=== PATIENT | female | born 2005 | race Caucasian/White ===

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

== ENCOUNTER → 2023-02-13 11:34 | Outpatient (BNVA) | payer OTHER, SELFPAY ==
[2022-09-05 08:49] VITALS: BP 129/79; BMI 36.6
== END ==
PROVIDERS: PCP Family Medicine; Visit Provider Nurse Practitioner
DX: Z79.899 Other long term (current) drug therapy (principal)
CPT/HCPCS: 80061; 83036

== ENCOUNTER → 2023-03-10 13:12 | Outpatient (BNVA) | payer MEDICAID, SELFPAY ==
[2022-09-05 08:49] VITALS: BP 129/79; BMI 36.6
== END ==
PROVIDERS: PCP Family Medicine; Visit Provider Registered Nurse Neonatal Intensive Care
DX: Z20.822 Contact with and (suspected) exposure to COVID-19 (principal); R05.9 Cough, unspecified; J06.9 Acute upper respiratory infection, unspecified
CPT/HCPCS: 87400; 87426

== ENCOUNTER 2023-10-19 16:34 | Emergency (ER) | payer MEDICAID, SELFPAY ==
[2022-09-05 08:49] VITALS: BP 129/79; BMI 36.6
--- NOTE | 2023-10-19 16:38 | XRR_ITS ---
PROCEDURE INFORMATION: Exam: XR Left Hand Exam date and time: 10/19/2023 5:00 PM Age: 18 years old Clinical indication: Hand; Right; Patient HX: PT states she popped wrist, pain near 5th digit and posterior near metacarpals. ; Additional info: Injury TECHNIQUE: Imaging protocol: Radiologic exam of the left hand. Views: 3 or more views. COMPARISON: No relevant prior studies available. FINDINGS: Bones/joints: Subtle, questionable hairline fracture at the base of the 5th metacarpal. The rest of the osseous structures are intact. Soft tissues: Normal. XR/XR hand LT min 3V* [id number] IMPRESSION: Subtle, questionable hairline fracture of the base of the metacarpal.
[2023-10-19 16:39] VITALS: BP 138/80; PULSE 101; RESP 17; TEMP 37.2; O2SAT 95; BMI 52.9
--- NOTE | 2023-10-19 16:52 | W.ED.EXTPRO ---
HPI - Extremity Problem General: Chief complaint: Extremity Injury, Upper Stated complaint: Left Hand injury Time Seen by Provider: 10/19/23 16:48 Source: patient Mode of arrival: ambulatory Limitations: no limitations History of Present Illness: Patient is a 18-year-old female presenting to the emergency department complaining of left hand pain onset today. Patient states she was popping her wrist, as she usually does, and had a worse than usual pain to the ulnar aspect, stating it feels like a pressure in her hand. No previous fractures or injuries to the wrist. No trauma. No distal neurovascular changes. Has not taken anything for pain. MD Complaint: extremity pain Onset (ago): hour(s) Pain Consistency: constant Location: left and upper extremity Radiation: none Relieving factors: nothing Exacerbating factors: nothing Associated symptoms: Deny chest pain, fever(s) or rash Related Data Home Medications Medication Instructions Recorded Confirmed levothyroxine 88 mcg tablet 88 mcg PO .ON SATURDAY@12/15/21 08/07/23 cholecalciferol (vitamin D3) 50 50 mcg PO QAM 06/05/22 08/07/23 mcg (2,000 unit) capsule (Vitamin D3) levothyroxine 100 mcg tablet See Rx Instructions .Route .COMPLEX 08/07/23 08/07/23 Previous Rx's Medication Instructions Recorded methylphenidate HCl 54 mg 54 mg PO QAM #30 tabs 05/18/22 tablet,extended release 24 hr (Concerta) bupropion HCl 150 mg 24 hr tablet, 150 mg PO QAM #30 tabs 08/07/23 extended release (Wellbutrin XL) citalopram 40 mg tablet (Celexa) 40 mg PO QAM #30 tabs 08/07/23 paliperidone 6 mg tablet,extended 12 mg (2 x 6 mg) PO QAM #60 tabs 08/07/23 release 24 hr (Invega) trazodone 50 mg tablet See Rx Instructions .Route 08/07/23 .COMPLEX #30 tabs hydroxyzine pamoate 50 mg capsule 50 mg PO BID PRN anxiety #60 caps 10/14/23 Allergies Allergy/AdvReac Type Severity Reaction Status Date / Time No Known Allergies Allergy Verified 10/19/23 16:42 Review of Systems General: Reports: 10 or more systems reviewed and unremarkable except in HPI and below Const: Denies: fever(s) or chills Card: Denies: chest pain Resp: Denies: dyspnea or productive cough GI: Denies: abdominal pain, nausea, vomiting or diarrhea : Denies: flank pain Musc: Reports: extremity pain (Left hand); Denies: neck pain, back pain, extremity swelling, joint pain, joint swelling, joint redness, joint warmth, limited range of motion or muscle weakness Skin/Breast: Denies: rash Neuro: Denies: headache(s), numbness in extremities or weakness in extremities PFSH ED PFSH: Medical History On combination antipsychotic drug therapy Borderline personality disorder Cannabis abuse Major depressive disorder, recurrent, moderate Tobacco use disorder Depression Psychiatric care Family History Family/Other Cancer lung Dementia Grandmother COPD (chronic obstructive pulmonary disease) Social History Smoking and tobacco/nicotine status: current every day tobacco/nicotine user e-cigarettes E-Cigarette Details: vaporizer device E-cig/vape details: 1 cartridge per week with nicotine Quit status (tobacco/nicotine): not considering quitting Second hand smoke exposure: Yes (everyone) Alcohol intake: never Substance/Drug Use: current Substance/Drug use frequency: few times a week Other substance/drug use details: when client has the money to purchase Adopted: No Caregiver/support person: No Lives independently: No Household members: family and other Details: Mother, sister, brother, and toddler or younger nieces and nephews Housing: House Marital status: Single Highest education level completed: 11th Grade Education level details: in 12th grade service: No Current occupational status: student Current occupational exposures/hazards: No Pets and animals: Yes Pets & animals: dog(s) Leisure activites: other Leisure activities details: walk, listen to music Sexually active: No Do you think of yourself as: Straight/Heterosexual Current gender identity: Female Rut/Church: None Agree to transfusion: Yes Female Reproductive History: Para: 0 Spontaneous abortions: No Physical Exam Const: COMMON NORMALS: no acute distress, patient oriented x3, no limitations, healthy appearing, alert and well nourished HENMT: COMMON NORMALS: normocephalic and atraumatic HEAD & SCALP: normocephalic and atraumatic Neck/C-Spine: COMMON NORMALS: full ROM, supple and no meningeal signs Resp: COMMON NORMALS: normal respiratory effort, No use of accessory muscles and clear to auscultation bilaterally AUSCULTATION: clear to auscultation bilaterally Cardio: COMMON NORMALS: regular rate and regular rhythm RATE: regular rate RHYTHM: regular rhythm Extremity: COMMON NORMALS: normal to inspection, full ROM, capillary refill normal, no joint enlargement and no clubbing, cyanosis or edema NARRATIVE EXTREMITY EXAM: No obvious bruising of the left hand. No signs of trauma or deformity. Distal neurovascular status intact. Good surveillance sensor officer strength. Mild reproducible tenderness to palpation of the ulnar aspect of the left hand. Full range of motion, some pain with flexion and extension at the wrist. Neuro: COMMON NORMALS: patient oriented x3, moves all extremities, no focal motor deficits and no sensory deficits noted SENSORIUM/ORIENTATION: Yes alert MENINGEAL SIGNS: Yes no meningeal signs Skin: COMMON NORMALS: no rashes or lesions noted GENERAL SKIN EXAM: no rashes or lesions noted Course Vital Signs: Vital signs: Vital Signs Temperature 98.9 F 10/19/23 18:22 Pulse Rate 98 10/19/23 18:22 Respiratory Rate 16 10/19/23 18:22 Blood Pressure 134/82 10/19/23 18:22 Pulse Oximetry 97 10/19/23 18:22 Oxygen Delivery Me thod Room Air 10/19/23 16:39 MDM - Extremity (Nontraumatic) Medical Decision Making Patient seen after atraumatic injury to the left wrist/hand, states she had pain while trying to pop it. Vitals normal on arrival. Physical examination overall unremarkable, there was very minimal reproducible tenderness to palpation of the ulnar aspect of the left hand/wrist. X-ray showed very small, and questionable if hairline fracture at the base of the metacarpal. She had requested to leave prior to x-ray radiology interpretation, and she will be contacted to follow-up with her primary doctor for reevaluation in the next few days. She is informed to treat with RICE therapy and Tylenol/ibuprofen and is placed in compression bandage prior to leaving. Lab Data Radiology Impressions Hand X-Ray 10/19/23 16:38 IMPRESSION: Subtle, questionable hairline fracture of the base of the metacarpal. XR interpretation done by ED provider, pending radiology final review ED provider radiology interpretation(s): X-ray left hand. No obvious fractures, questionable fifth metacarpal finding, pending radiology's interpretation. Discharge Plan Discharge Patient Disposition: Home Clinical Impression: Left wrist sprain Qualifiers: Encounter type: initial encounter Qualified Code(s): S63.502A - Unspecified sprain of left wrist, initial encounter Condition: Stable Prescriptions: No Action trazodone 50 mg tablet See Rx Instructions .ROUTE .COMPLEX Qty: 30 2RF Dose Instruction: TAKE 1 TABLET BY MOUTH AT BEDTIME Rx Instructions: TAKE 1 TABLET BY MOUTH AT BEDTIME paliperidone [Invega] 6 mg tablet extended release 24hr 12 mg PO QAM Qty: 60 2RF bupropion HCl [Wellbutrin XL] 150 mg tablet extended release 24 hr 150 mg PO QAM Qty: 30 2RF citalopram [Celexa] 40 mg tablet 40 mg PO QAM Qty: 30 2RF hydroxyzine pamoate 50 mg capsule 50 mg PO BID PRN (Reason: anxiety) Qty: 60 1RF levothyroxine 88 mcg Tablet 88 mcg PO .ON SATURDAY@09 levothyroxine 100 mcg tablet See Rx Instructions .ROUTE .COMPLEX Rx Instructions: 125mcg po daily @ 0900 except on saturday take 88mcg methylphenidate HCl [Concerta] 54 mg tablet extended release 24hr 54 mg PO QAM Qty: 30 0RF Vitamin D3 50 mcg (2,000 unit) Capsule 50 mcg PO QAM Discharge Orders: Discharge ED (Routine); Ordered 10/19/23 Ordered By: Hari Shi Referrals: Felipe Garcia MD [Primary Care Provider] - Discharge Diet: Usual diet Discharge Activity: Increase activity as tolerated Patient Instructions: Wrist Sprain (ED) Activity Restrictions/Additional Instructions: Rest, ice, compression, elevation. Follow-up with primary care provider. Tylenol and ibuprofen for any pain. Return with any new or worsening. 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
[2023-10-19 18:22] VITALS: BP 134/82; PULSE 98; RESP 16; TEMP 37.2; O2SAT 97
== END 2023-10-19 18:23 | disposition home or self-care (01) ==
PROVIDERS: Emergency Provider Physician Assistant; PCP Family Medicine
DX: S63.502A Unspecified sprain of left wrist, initial encounter (principal); X58.XXXA Exposure to other specified factors, initial encounter
CPT/HCPCS: 73130; 99283

== ENCOUNTER 2023-10-26 11:06 | Emergency (ER) | payer MEDICAID, SELFPAY ==
[2022-09-05 08:49] VITALS: BP 129/79; BMI 36.6
[2023-10-26 11:13] VITALS: BP 144/78; PULSE 94; RESP 16; TEMP 36.7; O2SAT 98
--- NOTE | 2023-10-26 13:07 | ED_ITS ---
HPI - Wound/Laceration General: Chief Complaint: Wound/Laceration Stated Complaint: Right foot possible spider bite Time Seen by Provider: 10/26/23 12:57 Source: patient Mode of arrival: ambulatory Limitations: no limitations History of Present Illness: Patient presents emergency department today for evaluation treatment of concerns for potential spider bite located to her right, medial foot. She reports the spot has been there for couple days and while she has been doing twice a day wound cleaning and bandage changing, feels the area is getting a little bit worse, more red and sore, and having draining. She is not sure if it was a spider bite but indicates she did not feel any type of scratch or sting prior to onset of the redness and skin irritation. She denies any known injury. She ind icated that at first, the area was somewhat itchy but has now turned more tender and sore. It is tender and sore when she performs wound care. No fever. Still ambulating. Related Data Home Medications Medication Instructions Recorded Confirmed levothyroxine 88 mcg tablet 88 mcg PO .ON SATURDAY@12/15/21 08/07/23 cholecalciferol (vitamin D3) 50 50 mcg PO QAM 06/05/22 08/07/23 mcg (2,000 unit) capsule (Vitamin D3) levothyroxine 100 mcg tablet See Rx Instructions .Route .COMPLEX 08/07/23 08/07/23 Previous Rx's Medication Instructions Recorded methylphenidate HCl 54 mg 54 mg PO QAM #30 tabs 05/18/22 tablet,extended release 24 hr (Concerta) bupropion HCl 150 mg 24 hr tablet, 150 mg PO QAM #30 tabs 08/07/23 extended release (Wellbutrin XL) citalopram 40 mg tablet (Celexa) 40 mg PO QAM #30 tabs 08/07/23 paliperidone 6 mg tablet,extended 12 mg (2 x 6 mg) PO QAM #60 tabs 08/07/23 release 24 hr (Invega) trazodone 50 mg tablet See Rx Instructions .Route 08/07/23 .COMPLEX #30 tabs hydroxyzine pamoate 50 mg capsule 50 mg PO BID PRN anxiety #60 caps 10/14/23 cephalexin 500 mg capsule 500 mg PO Q6H 7 days #28 caps 10/26/23 Allergies Allergy/AdvReac Type Severity Reaction Status Date / Time No Known Allergies Allergy Verified 10/26/23 11:17 Review of Systems General: Reports: 10 or more systems reviewed and unremarkable except in HPI and below PFSH ED PFSH: Medical History On combination antipsychotic drug therapy Borderline personality disorder Cannabis abuse Major depressive disorder, recurrent, moderate Tobacco use disorder Depression Psychiatric care Family History Family/Other Cancer lung Dementia Grandmother COPD (chronic obstructive pulmonary disease) Social History Smoking and tobacco/nicotine status: current every day tobacco/nicotine user e- cigarettes E-Cigarette Details: vaporizer device E-cig/vape details: 1 cartridge per week with nicotine Quit status (tobacco/nicotine): not considering quitting Second hand smoke exposure: Yes (everyone) Alcohol intake: never Substance/Drug Use: current Substance/Drug use frequency: few times a week Other substance/drug use details: when client has the money to purchase Adopted: No Caregiver/support person: No Lives independently: No Household members: family and other Details: Mother, sister, brother, and toddler or younger nieces and nephews Housing: House Marital status: Single Highest education level completed: 11th Grade Education level details: in 12th grade service: No Current occupational status: student Current occupational exposures/hazards: No Pets and animals: Yes Pets & animals: dog(s) Leisure activites: other Leisure activities details: walk, listen to music Sexually active: No Do you think of yourself as: Straight/Heterosexual Current gender identity: Female Rut/Jainism: None Agree to transfusion: Yes Female Reproductive History: Para: 0 Spontaneous abortions: No Physical Exam Const: COMMON NORMALS: no acute distress, patient oriented x3 and alert HENMT: COMMON NORMALS: normocephalic, atraumatic and hearing grossly normal bilaterally HEAD & SCALP: normocephalic and atraumatic Eye: COMMON NORMALS: Equal, round and reactive pupils present, EOMs intact bilaterally and conjunctivae normal CONJUNCTIVA: Yes conjunctivae normal PUPIL: Yes Equal, round and reactive pupils present Neck/C-Spine: COMMON NORMALS: full ROM and no JVD Lymph: LYMPHATIC: no lymphadenopathy noted Resp: COMMON NORMALS: normal respiratory effort, No retractions and No use of accessory muscles Cardio: COMMON NORMALS: no JVD and regular rate RATE: regular rate Extremity: NARRATIVE EXTREMITY EXAM: Full range of motion to the right ankle and toes of the right foot. She is ambulatory and weightbearing. Neuro: COMMON NORMALS: patient oriented x3 SENSORIUM/ORIENTATION: Yes alert Psych: COMMON NORMALS: mental status grossly normal, Normal thought process present, cooperative and normal affect THOUGHT PROCESS: Normal thought process present Skin: COMMON NORMALS: turgor normal GENERAL SKIN EXAM: turgor normal and erythema (Mild) OTHER: Patient has a somewhat circular area of mild ulceration noted to the right medial foot just above the arch. There is no active draining. The ulceration itself is red with very minimal surrounding erythema. No active draining but, does appear that there is some granulation tissue beginning to develop. No signs of an active eschar. No bleeding. Skin is still soft. Course Vital Signs: Vital signs: Vital Signs Temperature 98.1 F 10/26/23 11:13 Pulse Rate 94 10/26/23 11:13 Respiratory Rate 16 10/26/23 11:13 Blood Pressure 144/78 10/26/23 11:13 Pulse Oximetry 98 10/26/23 11:13 Oxygen Delivery Me thod Room Air 10/26/23 11:13 MDM - Wound/Laceration Medical Decision Making Patient presents today with several days of wound noted to the right foot. While there is unknown cause, she is suspicious for spider bite. Patient has been doing proper wound care for the last few days but, I do agree that the area is still erythematous but without development of eschar at this time. She denies any history of staph or MRSA in the past. We will provide her mupirocin cream for any presence of MRSA staph and rebandaged her foot here in the emergency department. Went over typical progression of spider bites-especially brown recluse and discussed envenomation with skin necrosis. At this time, I do not see any skin necrosis but do agree the area is erythematous with concerns for developing infection at this time. Patient is given a short course of some antibiotics with instructions to continue her twice a day wound care and bandaging with close monitoring. She can have follow-up with her primary care doctor next week for wound check if needed. She verbalizes understanding and agreement to treatment plan. Differential Diagnosis Unlikely laceration, abscess, abrasion or avulsion of skin No radiology studies performed this visit Discharge Plan Discharge Patient Disposition: Home Clinical Impression: Open wound of skin Condition: Stable Prescriptions: New cephalexin 500 mg capsule 500 mg PO Q6H 7 Days Qty: 28 0RF No Action trazodone 50 mg tablet See Rx Instructions .ROUTE .COMPLEX Qty: 30 2RF Dose Instruction: TAKE 1 TABLET BY MOUTH AT BEDTIME Rx Instructions: TAKE 1 TABLET BY MOUTH AT BEDTIME paliperidone [Invega] 6 mg tablet extended release 24hr 12 mg PO QAM Qty: 60 2RF bupropion HCl [Wellbutrin XL] 150 mg tablet extended release 24 hr 150 mg PO QAM Qty: 30 2RF citalopram [Celexa] 40 mg tablet 40 mg PO QAM Qty: 30 2RF hydroxyzine pamoate 50 mg capsule 50 mg PO BID PRN (Reason: anxiety) Qty: 60 1RF levothyroxine 88 mcg Tablet 88 mcg PO .ON SATURDAY@09 levothyroxine 100 mcg tablet See Rx Instructions .ROUTE .COMPLEX Rx Instructions: 125mcg po daily @ 0900 except on saturday take 88mcg methylphenidate HCl [Concerta] 54 mg tablet extended release 24hr 54 mg PO QAM Qty: 30 0RF Vitamin D3 50 mcg (2,000 unit) Capsule 50 mcg PO QAM Discharge Orders: Discharge ED (Routine); Ordered 10/26/23 Ordered By: Argenis Walker Referrals: Felipe Garcia MD [Primary Care Provider] - Discharge Diet: Usual diet Discharge Activity: Increase activity as tolerated Patient Instructions: Wound Care (General) Activity Restrictions/Additional Instructions: Is often very difficult to be able to determine whether or not wounds on the body are due to specific types of spiders or from other causes. However, the most important thing to monitor for is concerns of a brown recluse spider as these spiders do have them. Minimum the skin can often lead to skin necrosis which leads to ulceration however, these typically are are accompanied by developing black scabs. I see no signs of any black scabbing today. You have been keeping the wound very clean so I highly encourage you to continue with your cleaning regimen as you have been. We are giving you a mupirocin cream to apply after your wound cleans and with your bandage changes. This medication is strong enough to help cover for staph. We are also giving you a short course of some oral antibiotics to take during this time as well. Closely monitor the wound for any change or worsening. If it begins bleeding, develops a large black/ulcerated center, or you develop a fever you should be seen and reevaluated. You may wish to have just a general wound check next week with your primary care doctor to make sure your wound is healing properly. 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
[2023-10-26 13:24] VITALS: BP 125/75; PULSE 86; RESP 16; O2SAT 96
[2023-10-26] MEDS: mupirocin oint 22 gm 1 APPLIC TOPICAL (13:24)
[2023-10-26 13:25] VITALS: BP 125/75; PULSE 86; RESP 16; TEMP 36.7; O2SAT 96
== END 2023-10-26 13:25 | disposition home or self-care (01) ==
PROVIDERS: Emergency Provider Physician Assistant; PCP Family Medicine
DX: S91.301A Unspecified open wound, right foot, initial encounter (principal); F17.290 Nicotine dependence, other tobacco product, uncomplicated; X58.XXXA Exposure to other specified factors, initial encounter
CPT/HCPCS: 99283

== ENCOUNTER 2024-03-02 11:57 | Emergency (ER) | payer MEDICAID, SELFPAY ==
[2022-09-05 08:49] VITALS: BP 129/79; BMI 36.6
--- NOTE | 2024-03-02 11:59 | XR_ITS ---
WS: [id number] Left knee, 3 views, 03/02/2024 Clinical Data: injury Comparison: None. Findings: No fractures or dislocations are seen. The joint spaces are normal. The patella is intact. The soft t issues are unremarkable. XR/XR knee LT 3V* [id number] Impression: Negative left knee. Kellgren-Duy Classification: grade 0 (none): definite absence of x-ray brittney nges of osteoarthritis
[2024-03-02 12:02] VITALS: BP 142/88; PULSE 109; RESP 16; TEMP 36.7; O2SAT 97; BMI 52.9
--- NOTE | 2024-03-02 12:16 | W.ED.LOWEXIN ---
HPI - Extremity Injury (Lower) General: Chief Complaint: Extremity Injury, Lower Stated Complaint: lt knee injury Time Seen by Provider: 03/02/24 12:02 Source: patient Mode of arrival: ambulatory Limitations: no limitations History of Present Illness: Patient is a 18-year-old female presents to ED today for evaluation of a left knee injury that she sustained approximately 2 to 3 days ago after her dog tripped her and she landed onto the knee. Patient scraped the anterior aspect of her knee. Patient states she is here today because her mother thought it might be getting infected. She has continued to be ambulatory on the extremity without assistance. She denies any other complaints or injuries at this time. complaint: knee injury Onset (ago): day(s) Injury: Left: knee Place: home Severity: mild Exacerbating factors: weight bearing Context: fall Associated symptoms: Reports no associated symptoms Other symptoms: none Related Data Home Medications Medication Instructions Recorded Confirmed levothyroxine 88 mcg tablet 88 mcg PO .ON SATURDAY@12/15/21 11/08/23 cholecalciferol (vitamin D3) 50 50 mcg PO QAM 06/05/22 11/08/23 mcg (2,000 unit) capsule (Vitamin D3) levothyroxine 100 mcg tablet See Rx Instructions .Route .COMPLEX 08/07/23 11/08/23 Previous Rx's Medication Instructions Recorded methylphenidate HCl 54 mg 54 mg PO QAM #30 tabs 05/18/22 tablet,extended release 24 hr (Concerta) citalopram 40 mg tablet (Celexa) 40 mg PO QAM #30 tabs 11/08/23 paliperidone 6 mg tablet,extended 12 mg (2 x 6 mg) PO QAM #60 tabs 11/08/23 release 24 hr (Invega) trazodone 50 mg tablet See Rx Instructions .Route 11/08/23 .COMPLEX #30 tabs bupropion HCl 150 mg 24 hr tablet, 150 mg PO QAM #30 tabs 02/10/24 extended release (Wellbutrin XL) hydroxyzine pamoate 50 mg capsule 50 mg PO BID PRN anxiety #60 caps 02/10/24 mupirocin 2 % topical ointment 1 applic topical BID #15 grams 03/02/24 Allergies Allergy/AdvReac Type Severity Reaction Status Date / Time No Known Allergies Allergy Verified 03/02/24 12:05 Review of Systems Const: Denies: fever(s) Musc: Reports: joint pain (L knee); Denies: extremity pain, extremity swelling, joint swelling, joint redness, joint warmth or limited range of motion Skin/Breast: Reports: other (abrasion anterior L knee) Neuro: Denies: numbness in extremities, weakness in extremities or sensory changes PFSH ED PFSH: Medical History On combination antipsychotic drug therapy Borderline personality disorder Cannabis abuse Major depressive disorder, recurrent, moderate Tobacco use disorder Depression Psychiatric care Family History Family/Other Cancer lung Dementia Grandmother COPD (chronic obstructive pulmonary disease) Social History Smoking and tobacco/nicotine status: current every day tobacco/nicotine user e-cigarettes E-Cigarette Details: vaporizer device E-cig/vape details: 1 cartridge per week with nicotine Quit status (tobacco/nicotine): not considering quitting Second hand smoke exposure: Yes (everyone) Alcohol intake: never Substance/Drug Use: current Substance/Drug use frequency: few times a week Other substance/drug use details: when client has the money to purchase Adopted: No Caregiver/support person: No Lives independently: No Household members: family and other Details: Mother, sister, brother, and toddler or younger nieces and nephews Housing: House Marital status: Single Highest education level completed: 11th Grade Education level details: in 12th grade service: No Current occupational status: student Current occupational exposures/hazards: No Pets and animals: Yes Pets & animals: dog(s) Leisure activites: other Leisure activities details: walk, listen to music Sexually active: No Do you think of yourself as: Straight/Heterosexual Current gender identity: Female Rut/Gnosticism: None Agree to transfusion: Yes Female Reproductive History: Para: 0 Spontaneous abortions: No Physical Exam Const: COMMON NORMALS: no acute distress, no limitations, alert and well nourished GENERAL APPEARANCE: cooperative NUTRITIONAL APPEARANCE: obese (BMI 52.9) Extremity: COMMON NORMALS: full ROM, capillary refill normal, no joint enlargement, no clubbing, cyanosis or edema, no calf tenderness and no pedal edema GENERAL: Yes normal exam except as noted LEFT LOWER EXTREMITY: Yes knee joint (anterior abrasions/scrapes; erythema localized to wound edges) Left knee: Yes ROM (normal passive ROM without obvious discomfort) and Yes neurovascular exam (normal) Neuro: COMMON NORMALS: moves all extremities, no focal motor deficits and no sensory deficits noted SENSORIUM/ORIENTATION: Yes alert Skin: TRAUMA: abrasion Course Vital Signs: Vital signs: Vital Signs Temperature 98.1 F 03/02/24 12:02 Pulse Rate 109 H 03/02/24 12:02 Respiratory Rate 16 03/02/24 12:02 Blood Pressure 142/88 03/02/24 12:02 Pulse Oximetry 97 03/02/24 12:02 Oxygen Delivery Me thod Room Air 03/02/24 12:02 MDM - Extremity Injury (Lower) Medical Decision Making XR personal interpretation showing no acute fractures. Will prescribe her mupirocin ointment. Erythema is localized to wound edges. There is nothing to suggest cellulitis at this time. XR interpretation done by ED provider, pending radiology final review Discharge Plan Discharge Patient Disposition: Home Clinical Impression: Abrasion of knee, left Qualifiers: Encounter type: initial encounter Qualified Code(s): S80.212A - Abrasion, left knee, initial encounter Condition: Stable Prescriptions: New mupirocin 2 % ointment 1 applic topical BID Qty: 15 0RF No Action trazodone 50 mg tablet See Rx Instructions .ROUTE .COMPLEX Qty: 30 2RF Dose Instruction: TAKE 1 TABLET BY MOUTH AT BEDTIME Rx Instructions: TAKE 1 TABLET BY MOUTH AT BEDTIME paliperidone [Invega] 6 mg tablet extended release 24 hr 12 mg PO QAM Qty: 60 2RF citalopram [Celexa] 40 mg tablet 40 mg PO QAM Qty: 30 2RF bupropion HCl [Wellbutrin XL] 150 mg tablet extended release 24 hr 150 mg PO QAM Qty: 30 2RF hydroxyzine pamoate 50 mg capsule 50 mg PO BID PRN (Reason: anxiety) Qty: 60 1RF levothyroxine 88 mcg Tablet 88 mcg PO .ON SATURDAY@09 levothyroxine 100 mcg tablet See Rx Instructions .ROUTE .COMPLEX Rx Instructions: 125mcg po daily @ 0900 except on saturday take 88mcg methylphenidate HCl [Concerta] 54 mg tablet extended release 24hr 54 mg PO QAM Qty: 30 0RF Vitamin D3 50 mcg (2,000 unit) Capsule 50 mcg PO QAM Discharge Orders: Discharge ED (Routine); Ordered 03/02/24 Ordered By: Sandra Siddiqui Referrals: Felipe Garcia MD [Primary Care Provider] - Activity Restrictions/Additional Instructions: As we discussed, continue to keep area clean with warm soap and water. Monitor for worsening redness, purulent or odorous discharge or worsening pain. Please seek medical re-evaluation if these occur. 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
== END 2024-03-02 12:45 | disposition home or self-care (01) ==
PROVIDERS: Emergency Provider Physician Assistant; PCP Family Medicine
DX: S80.212A Abrasion, left knee, initial encounter (principal); F17.290 Nicotine dependence, other tobacco product, uncomplicated; W01.0XXA Fall on same level from slipping, tripping and stumbling without subsequent striking against object, initial encounter
CPT/HCPCS: 73562; 99283

== ENCOUNTER 2024-03-20 15:44 | Inpatient (IN) | payer MEDICAID, SELFPAY ==
[2022-09-05 08:49] VITALS: BP 129/79; BMI 36.6
[2024-03-20 15:53] VITALS: BP 135/96; PULSE 105; RESP 18; TEMP 36.8; O2SAT 95
--- NOTE | 2024-03-20 16:04 | W.ED.PSYCHS ---
HPI - Psych General: Chief Complaint: Psychiatric Symptoms Stated Complaint: SI Time Seen by Provider: 03/20/24 15:48 History of Present Illness: 18-year-old female with a history of depression and borderline personality disorder who presents emergency room with suicidal thoughts from the behavioral health clinic. She reports suicidal thoughts. Depression. Auditory visual hallucinations. She says she wants to either cut herself with a knife or overdose. Related Data Home Medications Medication Instructions Recorded Confirmed cholecalciferol (vitamin D3) 50 50 mcg PO QAM 06/05/22 03/20/24 mcg (2,000 unit) capsule (Vitamin D3) levothyroxine 100 mcg tablet See Rx Instructions .Route .COMPLEX 03/20/24 03/20/24 levothyroxine 125 mcg capsule 125 mcg PO DAILY 03/20/24 03/20/24 Previous Rx's Medication Instructions Recorded methylphenidate HCl 54 mg 54 mg PO QAM #30 tabs 05/18/22 tablet,extended release 24 hr (Concerta) citalopram 40 mg tablet (Celexa) 40 mg PO QAM #30 tabs 11/08/23 trazodone 50 mg tablet See Rx Instructions .Route 11/08/23 .COMPLEX #30 tabs bupropion HCl 150 mg 24 hr tablet, 150 mg PO QAM #30 tabs 02/10/24 extended release (Wellbutrin XL) hydroxyzine pamoate 50 mg capsule 50 mg PO BID PRN anxiety #60 caps 02/10/24 mupirocin 2 % topical ointment 1 applic topical BID #15 grams 03/02/24 paliperidone 6 mg tablet,extended 12 mg (2 x 6 mg) PO QAM #60 tabs 03/11/24 release 24 hr (Invega) Allergies Allergy/AdvReac Type Severity Reaction Status Date / Time No Known Allergies Allergy Verified 03/20/24 14:43 Review of Systems Narrative: Constitutional symptoms: Negative except as documented in HPI. Skin symptoms: Negative except as documented in HPI. Eye symptoms: Negative except as documented in HPI. ENMT symptoms: Negative except as documented in HPI. Respiratory symptoms: Negative except as documented in HPI. Cardiovascular symptoms: Negative except as documented in HPI. Gastrointestinal symptoms: Negative except as documented in HPI. Genitourinary symptoms: Negative except as documented in HPI. Musculoskeletal symptoms: Negative except as documented in HPI. Neurologic symptoms: Negative except as documented in HPI. Psychiatric symptoms: Negative except as documented in HPI. Endocrine symptoms: Negative except as documented in HPI. PFSH ED PFSH: Medical History On combination antipsychotic drug therapy Borderline personality disorder Cannabis abuse Major depressive disorder, recurrent, moderate Tobacco use disorder Depression Psychiatric care Family History Family/Other Cancer lung Dementia Grandmother COPD (chronic obstructive pulmonary disease) Social History Smoking and tobacco/nicotine status: current every day tobacco/nicotine user e-cigarettes E-Cigarette Details: vaporizer device E-cig/vape details: 1 cartridge per week with nicotine Quit status (tobacco/nicotine): not considering quitting Second hand smoke exposure: Yes (everyone) Alcohol intake: never Substance/Drug Use: current Substance/Drug use frequency: few times a week Other substance/drug use details: when client has the money to purchase Adopted: No Caregiver/support person: No Lives independently: No Household members: family and other Details: Mother, sister, brother, and toddler or younger nieces and nephews Housing: House Marital status: Single Highest education level completed: 11th Grade Education level details: in 12th grade service: No Current occupational status: student Current occupational exposures/hazards: No Pets and animals: Yes Pets & animals: dog(s) Leisure activites: other Leisure activities details: walk, listen to music Sexually active: No Do you think of yourself as: Straight/Heterosexual Current gender identity: Female Rut/Shinto: None Agree to transfusion: Yes Female Reproductive History: Para: 0 Spontaneous abortions: No Physical Exam Narrative: EXAM NARRATIVE: General: Alert. no acute distress Skin: Warm, dry Head: Normocephalic, atraumatic. Neck: Supple, trachea midline. Eye: Extraocular movements are intact. Ears, nose, mouth and throat: Oral mucosa moist. Cardiovascular: Regular rate and rhythm, Normal peripheral perfusion. Respiratory: Lungs are clear to auscultation, respirations are non-labored, breath sounds are equal, Symmetrical chest wall expansion. Gastrointestinal: Soft, Nontender, Non distended, Normal bowel sounds. Musculoskeletal: Normal ROM, no deformity. Neurological: Alert and oriented to person, place, time, and situation, No focal neurological deficit observed. Psychiatric: Cooperative, depressed, expresses suicidal ideation. Course Vital Signs: Vital signs: Vital Signs Temperature 98.2 F 03/20/24 15:53 Pulse Rate 105 H 03/20/24 15:53 Respiratory Rate 18 03/20/24 15:53 Blood Pressure 135/96 03/20/24 15:53 Pulse Oximetry 95 03/20/24 15:53 Oxygen Delivery Me thod Room Air 03/20/24 15:53 MDM - Psych Medical Decision Making Differential diagnosis: Patient with reported depression and suicidal ideation. concerns for infection, alcohol intoxication, cardiac issues or other medical problems prior to psychiatric admission. Workup: labwork, ekg ordered to evaluate the pathologies and to clear the patient medically prior to psychiatric admission Lab Review: Laboratory results were reviewed and interpreted by myself the emergency room physician. - Medically cleared. - EKG shows no ischemic changes. - Blood alcohol level is negative, -Tylenol and salicylate levels are negative. - Urinalysis and drug screen are pending - No anemia. - BUN and creatinine are within normal limits. Consultation: I spoke with Dr. Wiseman who is on-call for the psychiatry service. He agrees to admission. Assessment and plan: Depression Suicidal ideation Auditory and visual hallucinations -Admission to neuropsychiatric unit for continued evaluation and treatment. - All lab work was reviewed and interpreted personally by myself, the ER physician - Evaluation and treatment of this problem were appropriate in the emergency setting Lab Data 03/20/24 16:17 03/20/24 16:17 Laboratory Results WBC 15.33 10^3/uL (4.5-13.0) H 03/20/24 16:17 RBC 4.50 10^6/uL (3.85-5.65) 03/20/24 16:17 Hgb 11.90 g/dL (12.4-14.8) L 03/20/24 16:17 Hct 37.5 % (36-47) 03/20/24 16:17 MCV 83.3 fl (85-98) L 03/20/24 16:17 MCH 26.4 pg (27-33) L 03/20/24 16:17 MCHC 31.7 g/dL (30-55) 03/20/24 16:17 RDW 14.1 % (12.1-15.1) 03/20/24 16:17 Plt Count 326 10^3/cmm (157-399) 03/20/24 16:17 MPV 9.1 fL (7.4-10.4) 03/20/24 16:17 Neut % (Auto) 67.4 % 03/20/24 16:17 Lymph % (Auto) 24.9 % 03/20/24 16:17 [place] % (Auto) 6.1 % 03/20/24 16:17 Eos % (Auto) 0.7 % 03/20/24 16:17 Baso % (Auto) 0.5 % 03/20/24 16:17 Neut # (Auto) 10.34 10^3/uL (1.8-8.0) H 03/20/24 16:17 Lymph # (Auto) 3.8 10^3/uL (1.5-6.5) 03/20/24 16:17 [place] # (Auto) 0.9 10^3/uL (0.2-0.9) 03/20/24 16:17 Eos # (Auto) 0.1 10^3/uL (0.0-0.8) 03/20/24 16:17 Baso # (Auto) 0.1 10^3/uL (0.0-0.1) 03/20/24 16:17 Nucleated RBC % (auto) 0 % 03/20/24 16:17 Nucleated RBCs # 0.0 /100WBC 03/20/24 16:17 Sodium 136 mmol/L (136-145) 03/20/24 16:17 Potassium 3.8 mmol/L (3.5-5.1) 03/20/24 16:17 Chloride 96 mmol/L (98-107) L 03/20/24 16:17 Carbon Dioxide 25 mmol/L (22-29) 03/20/24 16:17 Anion Gap 18.8 (5-19) 03/20/24 16:17 BUN 10 mg/dL (6-20) 03/20/24 16:17 Creatinine 0.7 mg/dL (0.5-0.9) 03/20/24 16:17 GFR Calculation 106.7 mL/min (90-130) 03/20/24 16:17 Glucose 77 mg/dL (65-115) 03/20/24 16:17 Calculated Osmolality 280 mOsm/kg (285-295) L 03/20/24 16:17 Calcium 9.3 mg/dL (8.5-10.5) 03/20/24 16:17 Total Bilirubin 0.2 mg/dL (0.15-1.2) 03/20/24 16:17 AST 14 U/L (0-32) 03/20/24 16:17 ALT 10 U/L (0-33) 03/20/24 16:17 Alkaline Phosphatase 77 U/L (35-105) 03/20/24 16:17 Total Protein 7.9 g/dL (6.6-8.7) 03/20/24 16:17 Albumin 3.5 g/dL (3.5-5.2) 03/20/24 16:17 Globulin 4.4 g/dL (1.3-4.6) 03/20/24 16:17 TSH 1.74 uIU/mL (0.27-4.20) 03/20/24 16:17 Salicylates < 0.3 mg/dL (3-10) L 03/20/24 16:17 Acetaminophen < 5.0 ug/mL (10-30) L 03/20/24 16:17 Ethyl Alcohol < 10 mg/dL (0-10) 03/20/24 16:17 No radiology studies performed this visit Discharge Plan Discharge Patient Disposition: Admitted As Inpatient Clinical Impression: Suicidal ideation, Depression Condition: Stable Coding Level of Care Code ED Parts Counter Specialist for Linda Franklin
--- NOTE | 2024-03-20 16:18 | ECG_ITS ---
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
--- NOTE | 2024-03-20 16:22 | PC.NURSE ---
96 hour hold rights read and reviewed with patient. Patient verbalized understandings and copy of rights given to patient.
[2024-03-20 16:23] LABS: Basophils # 0.1 10^3/uL (0.0-0.1); Basophils % 0.5 %; Eosinophils # 0.1 10^3/uL (0.0-0.8); Eosinophils % 0.7 %; Hematocrit 37.5 % (36-47); Lymphocytes # 3.8 10^3/uL (1.5-6.5); Lymphocytes % 24.9 %; Mean Corpuscular HGB Conc 31.7 g/dL (30-55); Mean Corpuscular Hemoglobin 26.4 pg (27-33); Mean Corpuscular Volume 83.3 fl (85-98); Mean Platelet Volume 9.1 fL (7.4-10.4); Monocytes # 0.9 10^3/uL (0.2-0.9); Monocytes % 6.1 %; Neutrophils # 10.34 10^3/uL (1.8-8.0); Neutrophils % 67.4 %; Nucleated Red Blood Cells % 0 %; Platelet Count 326 10^3/cmm (157-399); Red Cell Distribution Width 14.1 % (12.1-15.1); White Blood Count 15.33 10^3/uL (4.5-13.0)
[2024-03-20 16:57] LABS: Alanine Aminotransferase 10 U/L (0-33); Albumin Level 3.5 g/dL (3.5-5.2); Alkaline Phosphatase 77 U/L (35-105); Anion Gap 18.8 (5-19); Aspartate Amino Transferase 14 U/L (0-32); Blood Urea Nitrogen 10 mg/dL (6-20); Calcium 9.3 mg/dL (8.5-10.5); Carbon Dioxide 25 mmol/L (22-29); Chloride 96 mmol/L (98-107); Globulin 4.4 g/dL (1.3-4.6); Glomerular Filtration Rate 106.7 mL/min (90-130); Glucose 77 mg/dL (65-115); Osmolality Calculated 280 mOsm/kg (285-295); Potassium 3.8 mmol/L (3.5-5.1); Sodium 136 mmol/L (136-145); Thyroid Stimulating Hormone 1.74 uIU/mL (0.27-4.20); Total Bilirubin 0.2 mg/dL (0.15-1.2); Total Protein 7.9 g/dL (6.6-8.7)
[2024-03-20 17:02] LABS: Acetaminophen < 5.0 ug/mL (10-30); Alcohol Level < 10 mg/dL (0-10); Salicylate < 0.3 mg/dL (3-10)
--- NOTE | 2024-03-20 17:15 | PC.NURSE ---
provided pt sandwich and sprite in Styrofoam cup. no further needs verbalized at this time
[2024-03-20 17:54] LABS: HCG Qualitative Urine. Negative (Negative)
[2024-03-20 18:28] LABS: Bilirubin Urine Negative (Negative); Blood Urine Negative (Negative); Glucose Urine UA Negative (Normal); Ketones Urine Negative (Negative); Leukocyte Esterase Urine 1+ (Negative); Nitrate Urine Negative (Negative); Protein Urine Negative (Negative); Specific Gravity, Urine 1.024 (1.005-1.030); Urine Appearance Cloudy (CLEAR); Urine Color Yellow (Yellow); Urobilinogen Urine 0.2 mg/dL (Negative); pH Urine 7.5 (5-7)
[2024-03-20 18:34] LABS: Bacteria Urine 2+ /hpf; Hyaline Casts Urine 2.05 /lpf; RBC Urine 0-2 /hpf (0-2); WBC Urine 21-50 /hpf (0-5)
[2024-03-20 18:41] LABS: Add Urine Culture? No
--- NOTE | 2024-03-20 18:51 | PC.NURSE ---
Report called to Brenna in NPU; all questions and concerns were addressed at time of report.
[2024-03-20 20:10] VITALS: BP 135/87; PULSE 109; RESP 18; TEMP 37.4; O2SAT 96
[2024-03-20 20:40] LABS: Amphetamines Screen Urine Negative (Negative); Barbiturates Screen Urine Negative (Negative); Benzodiazepines Screen Urine Negative (Negative); Cocaine Screen Urine Negative (Negative); Opiate Screen Urine Negative (Negative); PCP Screen Urine Negative (Negative); THC Screen Urine Negative (Negative)
[2024-03-20] MEDS: trazodone 50 mg Tablet PO (21:28)
[2024-03-20 21:43] VITALS: BP 135/87; PULSE 109; RESP 18; TEMP 37.4; O2SAT 96
[2024-03-21] MEDS: hyDROXYzine 25 mg Capsule 50 MG PO (01:48)
[2024-03-21 06:00] VITALS: BP 142/72; PULSE 127; RESP 18; TEMP 36.7; O2SAT 97
[2024-03-21] MEDS: buPROPion XL (24 HR) 150 mg Tablet PO (09:50)
[2024-03-21] MEDS: paliperidone ER 6 mg Tablet 12 MG PO (09:50)
[2024-03-21] MEDS: levothyroxine 125 mcg Tablet PO (09:50)
[2024-03-21] MEDS: cholecalciferol (vitamin D3) 1,000 unit Tablet 2000 UNIT PO (09:50)
[2024-03-21] MEDS: citalopram 20 mg Tablet 40 MG PO (09:50)
[2024-03-21] MEDS: acetaminophen 325 mg Tablet 650 MG PO (10:46)
--- NOTE | 2024-03-21 12:46 | P.NPUHP_ITS ---
Providers/Chief Complaint 2 Admitting Physician: Cristhian Reddy MD Primary Care Provider: Felipe Garcia MD Chief Complaint: SI HPI NPU History of Present Illness Norma Reese is a 18 year old female with a history of major depressive disorder, atypical psychosis, borderline personality disorder, mild intellectual disability and cannabis abuse who presented to the behavioral health clinic for an intake on 03/20/2024. The patient during the evaluation had reported increased frequency of suicidal thoughts. She had endorsed having a plan to overdose or cut herself. The patient's mother had reported that the patient had threatened overdose and she had reported that she locked up the patient's medications in order to keep her from taking them. She had reported sleeping excessively and reported that she was struggling with weight gain. The patient was then brought to the emergency department for further evaluation and admitted to the neuropsychiatric unit for further treatment. Today, the patient reports that she has been increasingly stressed at work. She reports some struggles with following directions and states that she frequently feels tired. She reports that the voices have not been as prominent but does report feeling more depressed. She denied any other recent stressors but reports that she has only been going to therapy approximately once a month. She had reported that she had been worried about losing her job. She reports that she has had some thoughts of cutting herself but had not been cutting recently. She denied any illicit drug use or alcohol use. The patient reports anhedonia. She reports more frequent periods of tearfulness. She denies any manic symptoms. She does report having chronic problems with worry. Inpatient psychiatric history: Multiple inpatient psychiatric hospitalizations beginning at the age of 15.? Her most recent hospitalization occurred 16 months ago. Outpatient psychiatric history: She is followed at [facility] [place].? She has been diagnosed with mild cognitive impairment, ADHD, and psychotic disorder not otherwise specified along with MDD, Autistic disorder and borderline personality disorder. She has been seeing therapist at [facility] [place] monthly, last visit with psychiatric provider was last month. Current Medications: Concerta 54 mg daily, Synthroid 125 mcg daily, Celexa 40 mg daily, vitamin D3, Wellbutrin XL 150 mg daily, Invega 12 mg daily, hydroxyzine Drug and alcohol history: She denies any alcohol use, she had reported in the past having used marijuana but is not using currently.? She had reported currently vaping and had previously endorsed nicotine use. Legal history: None Medical history: Vitamin D deficiency, hypothyroidism Surgeries: Tonsillectomy, Ear tube placement. Allergies no known drug allergies Family History: She denies mental health issues on either side of the family, addiction issues on her father?s side of the family and in her brother and suicide attempts/completion on her mother?s side of the family and her brother. Developmental History: She reports she was premature and her mother was in labor for 5 days, did not know if she met her developmental milestones on time but reports receiving speech therapy and special education classes. She had an IEP, and graduated with special diploma. Psychosocial History: She reports her parents were not together when she was born. She has 2 siblings who are products of the same union and her mother has one additional child. She reports she could not remember much about her childhood but endorses emotional abuse. She denies CYS involvement. She reports bullying in school environment. She endorses being heterosexual with her longest relationship for 1 month. She has never been , does not have children, has not been in the and denies a moravian belief system. Her longest employment history is 6 months. She currently lives in a house with her mother, sister, brother, and multiple nieces and nephews. 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 Meds NPU Home Medications Medication Instructions Recorded Confirmed Last Taken Type cholecalciferol (vitamin D3) 50 50 mcg PO DAILY 06/05/22 03/20/24 03/20/24 09:00 History mcg (2,000 unit) capsule (Vitamin D3) bupropion HCl 150 mg 24 hr tablet, 150 mg PO DAILY 03/20/24 03/20/24 03/20/24 09:00 History extended release (Wellbutrin XL) citalopram 40 mg tablet (Celexa) 40 mg PO DAILY 03/20/24 03/20/24 03/20/24 09:00 History levothyroxine 125 mcg capsule 125 mcg PO DAILY 03/20/24 03/20/24 03/20/24 09:00 History methylphenidate HCl 54 mg 54 mg PO DAILY 03/20/24 03/20/24 03/20/24 09:00 History tablet,extended release 24 hr (Concerta) paliperidone 6 mg tablet,extended 12 mg PO DAILY 03/20/24 03/20/24 03/20/24 09:00 History release 24 hr (Invega) trazodone 50 mg tablet 50 mg PO BEDTIME 03/20/24 03/20/24 1 Day Ago History ~03/19/24 50 mg Allergies Allergy/AdvReac Type Severity Reaction Status Date / Time No Known Allergies Allergy Verified 03/20/24 14:43 PFSH NPU 2 PFSH: Medical History On combination antipsychotic drug therapy Borderline personality disorder Cannabis abuse Major depressive disorder, recurrent, moderate Tobacco use disorder Depression Psychiatric care Family History Family/Other Cancer lung Dementia Grandmother COPD (chronic obstructive pulmonary disease) Social History Smoking and tobacco/nicotine status: current every day tobacco/nicotine user e- cigarettes E-Cigarette Details: vaporizer device E-cig/vape details: 1 cartridge per week with nicotine Quit status (tobacco/nicotine): not considering quitting Second hand smoke exposure: Yes (everyone) Alcohol intake: never Substance/Drug Use: current Substance/Drug use frequency: few times a week Other substance/drug use details: when client has the money to purchase Adopted: No Caregiver/support person: No Lives independently: No Household members: family and other Details: Mother, sister, brother, and toddler or younger nieces and nephews Housing: House Marital status: Single Highest education level completed: 11th Grade Education level details: in 12th grade service: No Current occupational status: student Current occupational exposures/hazards: No Pets and animals: Yes Pets & animals: dog(s) Leisure activites: other Leisure activities details: walk, listen to music Sexually active: No Do you think of yourself as: Straight/Heterosexual Current gender identity: Female Rut/Christianity: None Agree to transfusion: Yes Female Reproductive History: Para: 0 Spontaneous abortions: No Mental Status Exam 2 MSE Comments: Patient was short stature overweight white female who appears younger than her stated age with adequate grooming and poor eye contact. She was cooperative with the examination. There is no evidence of any abnormal involuntary motor movements,tics or tremors appreciated. There was evidence of moderate psychomotor retardation. Her speech was monotone and quality and normal in regards to rate and volume. Her mood was described as sad. Her affect was restricted in range and mood-congruent. Her thought process was linear logical and goal-directed. She endorsed suicidal ideation with thoughts of cutting or overdosing. She denied any homicidal ideation. There was no clear evidence of delusional thinking. She did not appear to be responding to internal stimuli and denied any auditory or visual hallucinations. Her intelligence appeared commensurate with mild cognitive impairment. She was alert and oriented to person place and time. Her recent and remote memory were grossly intact. Her impulse control appeared poor. Her insight and judgment are poor. 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 1. Restart outpatient medications, will increase wellbutrin xl to 300mg in am, restart other outpatient medications. 2. Encourage individual, group and milieu therapy 3. Continue q-15 minute check for safety 4. Patient likely to benefit with weekly psychotherapy 5. Involuntary Hold Information 2 96 Hour Hold: 96 Hour Involuntary Admission: Yes 96 Hour Hold Ending Date: 03/26/24 96 Hour Hold Ending Time: 15:44 Other Hold: Hold End Date: 03/26/24 Attestations NPU 2 Medical Necessity Statement*: Inpatient hospitalization is medically necessary and deemed to ?be ?the clinically appropriate intervention ?at this time.? We will monitor/initiate medications and make changes as indicated.? The patient will be in the hospital for over 2 midnights.? The patient?s likely length of stay 5-7 days Coding Level of Care Code Acute Code for Chg Fwd Diagnoses Major depressive disorder, severe F32.2 Suicidal ideation R45.851 Depression with suicidal ideation F32.A; R45.851 Cluster B personality disorder F60.89 Cannabis use disorder F12.90 History of ADHD Z86.59 Mild intellectual disability F70 Tobacco use disorder F17.200 Autistic disorder F84.0 ADHD, predominantly inattentive type F90.0 Unspecified psychosis F29
[2024-03-21] MEDS: nicotine 2 mg Gum BUCCAL (12:51)
[2024-03-21] MEDS: OLANZapine 5 mg ODT PO (12:51)
--- NOTE | 2024-03-21 12:52 | PC.NURSE ---
Pt is upset about not being able to go outside and Vape, the rules were explained to the pt, vaping is not allowed on the unit. Pt was administered 5mg Sublingual Zyprexa for agitation and hitting herself in the face and head with her fists. Pt's cheek is red and flush from the self harm. Pt is checking the doors and pushing on the exit doors. Pt states that she wants to go home.
[2024-03-21] MEDS: haloperidol inj 5 mg/mL INJ 1 mL IM (13:27)
[2024-03-21] MEDS: diphenhydrAMINE 50 mg/mL SDV 1mL IM (13:27)
[2024-03-21] MEDS: LORazepam 2 mg/mL INJ 1 mL IM (13:27)
[2024-03-21 14:00] VITALS: BP 122/76; PULSE 92; RESP 16; TEMP 36.8; O2SAT 97
--- NOTE | 2024-03-21 14:05 | PC.NURSE ---
1327 Administered 2mg IM Ativan, 50mg IM Benadryl, 5mg IM Haldol, for self harm and trying to escape the unit by pushing on the door and using closed fist to hit the door. Security was present, pt finally agreed to have the injections administered without going hands on. Pt tolerated the injections well.
[2024-03-21] MEDS: trazodone 50 mg Tablet PO (21:21)
[2024-03-21 22:00] VITALS: BP 109/69; PULSE 103; RESP 16; TEMP 36.5; O2SAT 96
[2024-03-22 06:00] VITALS: BP 109/58; PULSE 105; RESP 16; O2SAT 95
[2024-03-22] MEDS: citalopram 20 mg Tablet 40 MG PO (08:15)
[2024-03-22] MEDS: paliperidone ER 6 mg Tablet 12 MG PO (08:15)
[2024-03-22] MEDS: cholecalciferol (vitamin D3) 1,000 unit Tablet 2000 UNIT PO (08:16)
[2024-03-22] MEDS: levothyroxine 125 mcg Tablet PO (08:16)
[2024-03-22] MEDS: buPROPion XL (24 HR) 150 mg Tablet 300 MG PO (08:17)
[2024-03-22 14:00] VITALS: BP 120/85; PULSE 140; RESP 16; TEMP 36.7; O2SAT 98
--- NOTE | 2024-03-22 16:08 | P.NPUPN_ITS ---
Subjective NPU 2 Subjective: Patient is a 16-year-old female with autistic disorder, impulse control disorder not specified, psychotic disorder not only specified, along with depression admitted with suicidal ideation. The patient had reported seeing shadows. She reported that she was not feeling as suicidal today. She reported that she was feeling depressed. She reported struggles at work had led her to feel more stressed and depressed. The patient had remained isolative on the milieu. The patient reported struggles with low energy. She had not reported any side effects from the increase in Wellbutrin. Mental Status Exam 2 MSE Comments: Patient was short stature overweight white female who appears younger than her stated age with adequate grooming and poor eye contact. She was cooperative with the examination. There is no evidence of any abnormal involuntary motor movements,tics or tremors appreciated. There was evidence of mild psychomotor retardation. Her speech was monotone and quality and normal in regards to rate and volume. Her mood was described as depressed. Her affect was restricted in range and mood-congruent. Her thought process was linear, logical and goal-directed. She endorsed suicidal ideation with no plan today. She denied any homicidal ideation. There was no clear evidence of delusional thinking. She did not appear to be responding to internal stimuli and denied any auditory or visual hallucinations. Her intelligence appeared commensurate with mild cognitive impairment. She was alert and oriented to person, place, and time. Her recent and remote memory were grossly intact. Her impulse control appeared poor. Her insight and judgment are poor. 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 1. Restart outpatient medications, Continue wellbutrin xl to 300mg in am, decrease Celexa to 20mg daily. Continue Invega 12mg at night. 2. Encourage individual, group and milieu therapy 3. Continue q-15 minute check for safety 4. Patient likely to benefit with weekly psychotherapy 5. Involuntary Hold Information 2 96 Hour Hold: 96 Hour Involuntary Admission: Yes 96 Hour Hold Ending Date: 03/26/24 96 Hour Hold Ending Time: 15:44 Other Hold: Hold End Date: 03/26/24 Attestations NPU 2 Medical Necessity Statement*: Inpatient hospitalization is medically necessary and deemed to ?be ?the clinically appropriate intervention ?at this time.? We will monitor/initiate medications and make changes as indicated.? The patient will be in the hospital for over 2 midnights.? The patient?s likely length of stay 5-7 days Coding Level of Care Code Acute Code for [facility] Fwd Diagnoses Major depressive disorder, severe F32.2 Suicidal ideation R45.851 Depression with suicidal ideation F32.A; R45.851 Cluster B personality disorder F60.89 Cannabis use disorder F12.90 History of ADHD Z86.59 Mild intellectual disability F70 Tobacco use disorder F17.200 Autistic disorder F84.0 ADHD, predominantly inattentive type F90.0 Unspecified psychosis F29
[2024-03-22] MEDS: hyDROXYzine 25 mg Capsule 50 MG PO (21:03)
[2024-03-22] MEDS: trazodone 50 mg Tablet PO (21:03)
[2024-03-22 22:00] VITALS: BP 108/67; PULSE 131; RESP 16; TEMP 36.7; O2SAT 94
[2024-03-23 06:00] VITALS: BP 123/68; PULSE 104; RESP 16; TEMP 36.8; O2SAT 94
[2024-03-23] MEDS: citalopram 20 mg Tablet PO (08:11)
[2024-03-23] MEDS: paliperidone ER 6 mg Tablet 12 MG PO (08:11)
[2024-03-23] MEDS: levothyroxine 125 mcg Tablet PO (08:11)
[2024-03-23] MEDS: buPROPion XL (24 HR) 150 mg Tablet 300 MG PO (08:11)
[2024-03-23] MEDS: cholecalciferol (vitamin D3) 1,000 unit Tablet 2000 UNIT PO (08:11)
--- NOTE | 2024-03-23 12:14 | PC.NURSE ---
spoke with pt mother (justus) about her bringing in pt home medication concerta 54mg for pt use pt mother stated of course she will bring it
[2024-03-23 14:00] VITALS: BP 133/84; PULSE 118; RESP 18; TEMP 37.1; O2SAT 97
[2024-03-23] MEDS: nicotine 21 mg Patch 1 PATCH TRANSDERMA (16:21)
--- NOTE | 2024-03-23 16:32 | W.PM.NPUPNS ---
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 The patient had reported feeling less stressed today. She had reported that she was no longer hearing voices and reported not seeing shadows today. She had continued to report struggles with being around other people. She had made attempts to try to leave the unit. She had not endorsed any thoughts of hurting herself and stated that she was hopeful to going back to work as she stated that she was fearful about losing her job. Patient struggled with attending groups and stated that she felt anxious around her peers. Mental Status Exam MSE Comments: Patient was short stature overweight white female who appears younger than her stated age with poor grooming and fleeting eye contact. She was cooperative with the examination. There is no evidence of any abnormal involuntary motor movements,tics or tremors appreciated. There was evidence of mild psychomotor retardation. Her speech was monotone and quality and normal in regards to rate and volume. Her mood was described as okay. Her affect was restricted in range and mood-congruent. Her thought process was linear, logical and goal-directed. She denied suicidal ideation with no plan today. She denied any homicidal ideation. There was no clear evidence of delusional thinking. She did not appear to be responding to internal stimuli and denied any auditory or visual hallucinations. Her intelligence appeared commensurate with mild cognitive impairment. She was alert and oriented to person, place, and time. Her recent and remote memory were grossly intact. Her impulse control appeared poor. Her insight and judgment are poor. Vitals/I&O/Wt Last Vital Signs Temp 98.7 F 03/23/24 14:00 Pulse 118 H 03/23/24 14:00 Resp 18 03/23/24 14:00 BP 133/84 03/23/24 14:00 Pulse Ox 97 03/23/24 14:00 O2 Del Method Room Air 03/22/24 14:00 Weight last 48 hrs Weight 79.379 kg Data NPU 03/20/24 16:17 03/20/24 16:17 A&P Assessment and plan (1) Major depressive disorder, severe: (2) Suicidal ideation: (3) Depression with suicidal ideation: (4) Cluster B personality disorder: (5) Cannabis use disorder: (6) History of ADHD: (7) Mild intellectual disability: (8) Tobacco use disorder: (9) Autistic disorder: (10) ADHD, predominantly inattentive type: (11) Unspecified psychosis: Plan This is an 18 year old woman with a history of trauma, depression and atypical psychosis and mild cognitive impairment admitted with suicidal ideation with worsening depression. 1. Restart outpatient medications, Continue wellbutrin xl to 300mg in am, decrease Celexa to 20mg daily. Decrease invega to 9mg at night. 2. Encourage individual, group and milieu therapy 3. Continue q-15 minute check for safety 4. Patient likely to benefit with weekly psychotherapy 5. Involuntary Hold Information 96 Hour Hold: 96 Hour Involuntary Admission: Yes 96 Hour Hold Ending Date: 03/26/24 96 Hour Hold Ending Time: 15:44 Other Hold: Hold End Date: 03/26/24 Attestations NPU Medical Necessity Statement*: Inpatient hospitalization is medically necessary and deemed to ?be ?the clinically appropriate intervention ?at this time.? We will monitor/initiate medications and make changes as indicated.?The patient?s likely length of stay 3-5 days Coding Level of Care Code Acute Code for [facility] Fwd Diagnoses Major depressive disorder, severe F32.2 Suicidal ideation R45.851 Depression with suicidal ideation F32.A; R45.851 Cluster B personality disorder F60.89 Cannabis use disorder F12.90 History of ADHD Z86.59 Mild intellectual disability F70 Tobacco use disorder F17.200 Autistic disorder F84.0 ADHD, predominantly inattentive type F90.0 Unspecified psychosis F29
[2024-03-23] MEDS: hyDROXYzine 25 mg Capsule 50 MG PO (20:13)
[2024-03-23] MEDS: trazodone 50 mg Tablet PO (20:13)
[2024-03-23 20:41] VITALS: BP 103/69; PULSE 124; RESP 16; TEMP 36.8; O2SAT 97
[2024-03-24 05:35] VITALS: BP 139/71; PULSE 127; RESP 18; TEMP 36.8; O2SAT 96
[2024-03-24] MEDS: cholecalciferol (vitamin D3) 1,000 unit Tablet 2000 UNIT PO (08:21)
[2024-03-24] MEDS: citalopram 20 mg Tablet PO (08:21)
[2024-03-24] MEDS: paliperidone ER 9 mg Tablet PO (08:22)
[2024-03-24] MEDS: buPROPion XL (24 HR) 150 mg Tablet 300 MG PO (08:22)
[2024-03-24] MEDS: levothyroxine 125 mcg Tablet PO (08:22)
[2024-03-24] MEDS: DESOGESTREL ETHINYL ESTRADIOL 1 EACH PO (08:23)
[2024-03-24] MEDS: acetaminophen 325 mg Tablet 650 MG PO (11:22)
--- NOTE | 2024-03-24 13:22 | P.NPUDS_ITS ---
Diagnoses at Discharge Discharge Diagnosis (1) Major depressive disorder, severe: Status: Acute (2) Suicidal ideation: Status: Resolved (3) Depression with suicidal ideation: Status: Resolved (4) Cluster B personality disorder: Status: Acute (5) Cannabis use disorder: Status: Resolved (6) History of ADHD: Status: Acute (7) Mild intellectual disability: Status: Acute (8) Tobacco use disorder: Status: Acute (9) Autistic disorder: Status: Acute (10) ADHD, predominantly inattentive type: Status: Acute (11) Unspecified psychosis: Status: Acute Reason for Visit Reason for Visit: SI Brief History: History of Present Illness Norma Reese is a 18 year old female with a history of major depressive disorder, atypical psychosis, borderline personality disorder, mild intellectual disability and cannabis abuse who presented to the behavioral health clinic for an intake on 03/20/2024. The patient during the evaluation had reported increased frequency of suicidal thoughts. She had endorsed having a plan to overdose or cut herself. The patient's mother had reported that the patient had threatened overdose and she had reported that she locked up the patient's medications in order to keep her from taking them. She had reported sleeping excessively and reported that she was struggling with weight gain. The patient was then brought to the emergency department for further evaluation and admitted to the neuropsychiatric unit for further treatment. Today, the patient reports that she has been increasingly stressed at work. She reports some struggles with following directions and states that she frequently feels tired. She reports that the voices have not been as prominent but does report feeling more depressed. She denied any other recent stressors but reports that she has only been going to therapy approximately once a month. She had reported that she had been worried about losing her job. She reports that she has had some thoughts of cutting herself but had not been cutting recently. She denied any illicit drug use or alcohol use. The patient reports anhedonia. She reports more frequent periods of tearfulness. She denies any manic symptoms. She does report having chronic problems with worry. Inpatient psychiatric history: Multiple inpatient psychiatric hospitalizations beginning at the age of 15.? Her most recent hospitalization occurred 16 months ago. Outpatient psychiatric history: She is followed at [facility].? She has been diagnosed with mild cognitive impairment, ADHD, and psychotic disorder not otherwise specified along with MDD, Autistic disorder and borderline personality disorder. She has been seeing therapist at [facility] monthly, last visit with psychiatric provider was last month. Current Medications: Concerta 54 mg daily, Synthroid 125 mcg daily, Celexa 40 mg daily, vitamin D3, Wellbutrin XL 150 mg daily, Invega 12 mg daily, hydroxyzine Drug and alcohol history: She denies any alcohol use, she had reported in the past having used marijuana but is not using currently.? She had reported currently vaping and had previously endorsed nicotine use. Legal history: None Medical history: Vitamin D deficiency, hypothyroidism Surgeries: Tonsillectomy, Ear tube placement. Allergies no known drug allergies Family History: She denies mental health issues on either side of the family, addiction issues o n her father?s side of the family and in her brother and suicide attempts/completion on her mother?s side of the family and her brother. Developmental History: She reports she was premature and her mother was in labor for 5 days, did not know if she met her developmental milestones on time but reports receiving speech therapy and special education classes. She had an IEP, and graduated with special diploma. Psychosocial History: She reports her parents were not together when she was born. She has 2 siblings who are products of the same union and her mother has one additional child. She reports she could not remember much about her childhood but endorses emotional abuse. She denies C[employer] involvement. She reports bullying in school environment. She endorses being heterosexual with her longest relationship for 1 month. She has never been , does not have children, has not been in the and denies a orthodox belief system. Her longest employment history is 6 months. She currently lives in a house with her mother, sister, brother, and multiple nieces and nephews. 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 Hospital Course Hospital Course During the hospitalization, the patient had routine laboratory studies which were within normal limits except for a few outliers.? Patient had initially reported feeling tired and reported visual hallucinations of seeing shadows. Patient had also then reported at a later date of hearing voices. She had endorsed depression and Wellbutrin XL was increased from 150 mg on admission to 300 mg daily. Furthermore, Celexa was decreased from 40 mg daily to 20 mg daily with no worsening mood reported. The patient's Concerta was restarted to target ADHD. The patient's Invega was reduced from 12 mg daily to 9 mg daily with decreased fatigue and decrease in sedation reported by the patient at the time of discharge. Additionally, there was a general medical evaluation which was also within normal limits and revealed no new acute processes.? At the time of discharge, lethality was denied and psychosis was resolving.? Mood and anxiety were well managed.? The patient endorsed a plan to avoid all drugs of abuse and follow up with the aftercare recommendations of the treatment team.? The patient was evaluated and deemed to be absent credible lethality and had achieved the maximum benefit from an inpatient hospitalization, and so was discharged. ? Involuntary Hold Information 96 Hour Hold: 96 Hour Involuntary Admission: Yes 96 Hour Hold Ending Date: 03/26/24 96 Hour Hold Ending Time: 15:44 Other Hold: Hold End Date: 03/26/24 Mental Status Exam MSE Comments: Patient was short stature overweight white female who appears younger than her stated age with poor grooming and fleeting eye contact. She was cooperative with the examination. There is no evidence of any abnormal involuntary motor movements,tics or tremors appreciated. There was evidence of mild psychomotor retardation. Her speech was monotone and quality and normal in regards to rate and volume. Her mood was described as good. Her affect was mildly restricted. Her thought process was linear, logical and goal-directed. She denied suicidal ideation with no plan today. She denied any homicidal ideation. There was no clear evidence of delusional thinking. She did not appear to be responding to internal stimuli and denied any auditory or visual hallucinations. Her intelligence appeared commensurate with mild cognitive impairment. She was alert and oriented to person, place, and time. Her recent and remote memory were grossly intact. Her impulse control appeared limited. Her insight is poor and judgment is fair. Discharge Data Studies Completed and Pending: Laboratory Results WBC 15.33 10^3/uL (4. 5-13.0) H 03/20/24 16:17 RBC 4.50 10^6/uL (3.8 5-5.65) 03/20/24 16:17 Hgb 11.90 g/dL (12.4- 14.8) L 03/20/24 16:17 Hct 37.5 % (36-47) 03/20/24 16:17 MCV 83.3 fl (85-98) L 03/20/24 16:17 MCH 26.4 pg (27-33) L 03/20/24 16:17 MCHC 31.7 g/dL (30-55) 03/20/24 16:17 RDW 14.1 % (12.1-15.1 ) 03/20/24 16:17 Plt Count 326 10^3/cmm (157 -399) 03/20/24 16:17 MPV 9.1 fL (7.4-10.4) 03/20/24 16:17 Neut % (Auto) 67.4 % 03/20/24 16:17 Lymph % (Auto) 24.9 % 03/20/24 16:17 [place] % (Auto) 6.1 % 03/20/24 16:17 Eos % (Auto) 0.7 % 03/20/24 16:17 Baso % (Auto) 0.5 % 03/20/24 16:17 Neut # (Auto) 10.34 10^3/uL (1. 8-8.0) H 03/20/24 16:17 Lymph # (Auto) 3.8 10^3/uL (1.5- 6.5) 03/20/24 16:17 [place] # (Auto) 0.9 10^3/uL (0.2- 0.9) 03/20/24 16:17 Eos # (Auto) 0.1 10^3/uL (0.0- 0.8) 03/20/24 16:17 Baso # (Auto) 0.1 10^3/uL (0.0- 0.1) 03/20/24 16:17 Nucleated RBC % (a uto) 0 % 03/20/24 16:17 Nucleated RBCs # 0.0 /100WBC 03/20/24 16:17 Sodium 136 mmol/L (136-1 45) 03/20/24 16:17 Potassium 3.8 mmol/L (3.5-5 .1) 03/20/24 16:17 Chloride 96 mmol/L (98-107 ) L 03/20/24 16:17 Carbon Dioxide 25 mmol/L (22-29) 03/20/24 16:17 Anion Gap 18.8 (5-19) 03/20/24 16:17 BUN 10 mg/dL (6-20) 03/20/24 16:17 Creatinine 0.7 mg/dL (0.5-0. 9) 03/20/24 16:17 GFR Calculation 106.7 mL/min (90- 130) 03/20/24 16:17 Glucose 77 mg/dL (65-115) 03/20/24 16:17 Calculated Osmolal ity 280 mOsm/kg (285- 295) L 03/20/24 16:17 Calcium 9.3 mg/dL (8.5-10 .5) 03/20/24 16:17 Total Bilirubin 0.2 mg/dL (0.15-1 .2) 03/20/24 16:17 AST 14 U/L (0-32) 03/20/24 16:17 ALT 10 U/L (0-33) 03/20/24 16:17 Alkaline Phosphata se 77 U/L (35-105) 03/20/24 16:17 Total Protein 7.9 g/dL (6.6-8.7 ) 03/20/24 16:17 Albumin 3.5 g/dL (3.5-5.2 ) 03/20/24 16:17 Globulin 4.4 g/dL (1.3-4.6 ) 03/20/24 16:17 TSH 1.74 uIU/mL (0.27 -4.20) 03/20/24 16:17 HCG, Qual Negative (Negati ve) 03/20/24 17: Urine Color Yellow (Yellow) 03/20/24 17:32 Urine Appearance Cloudy (CLEAR) A 03/20/24 17:32 Urine pH 7.5 (5-7) 03/20/24 17:32 Ur Specific Gravit y 1.024 (1.005-1.0 30) 03/20/24 17:32 Urine Protein Negative (Negati ve) 03/20/24 17:32 Urine Glucose (UA) Negative (Normal ) 03/20/24 17:32 Urine Ketones Negative (Negati ve) 03/20/24 17:32 Urine Blood Negative (Negati ve) 03/20/24 17: Urine Nitrate Negative (Negati ve) 03/20/24 17:32 Urine Bilirubin Negative (Negati ve) 03/20/24 17:32 Urine Urobilinogen 0.2 mg/dL (Negati ve) 03/20/24 17:32 Ur Leukocyte Maryann ase 1+ (Negative) A 03/20/24 17:32 Urine RBC 0-2 /hpf (0-2) 03/20/24 17:32 Urine WBC 21-50 /hpf (0-5) H 03/20/24 17:32 Ur Squamous Epith Cells 11-20 /hpf (0-5) H 03/20/24 17:32 Amorphous Sediment Not Reportable 03/20/24 17:32 Urine Bacteria 2+ /hpf (NONE) H 03/20/24 17:32 Hyaline Casts 2.05 /lpf 03/20/24 17:32 Salicylates < 0.3 mg/dL (3-10 ) L 03/20/24 16:17 Urine Opiates Scre en Negative ng/mL (N egative) 03/20/24 17:32 Acetaminophen < 5.0 ug/mL (10-3 0) L 03/20/24 16:17 Ur Barbiturates Sc reen Negative ng/mL (N egative) 03/20/24 17:32 Ur Phencyclidine S crn Negative ng/mL (N egative) 03/20/24 17:32 Ur Amphetamines Sc reen Negative ng/mL (N egative) 03/20/24 17:32 U Benzodiazepines Scrn Negative ng/mL (N egative) 03/20/24 17:32 Urine Cocaine Scre en Negative ng/mL (N egative) 03/20/24 17:32 U Marijuana (THC) Screen Negative ng/mL (N egative) 03/20/24 17:32 Ethyl Alcohol < 10 mg/dL (0-10) 03/20/24 16:17 Vitals: Last Vital Signs Temp 98.3 F 03/24/24 05:35 Pulse 127 H 03/24/24 05:35 Resp 18 03/24/24 05:35 BP 139/71 03/24/24 05:35 Pulse Ox 96 03/24/24 05:35 O2 Del Method Room Air 03/24/24 05:35 Discharge Plan Discharge Patient Disposition: Home Condition: Stable Prescriptions: New bupropion HCl [Wellbutrin XL] 300 mg tablet extended release 24 hr 300 mg PO QAM Qty: 30 1RF citalopram 20 mg Tablet 20 mg PO DAILY 30 Days Qty: 30 1RF paliperidone 9 mg Tablet Extended Release 24 Hr 9 mg PO DAILY 30 Days Qty: 30 1RF Continued levothyroxine 125 mcg capsule 125 mcg PO DAILY Rx Instructions: take one daily except on saturday take 1 1/2 tab. cholecalciferol (vitamin D3) [Vitamin D3] 50 mcg (2,000 unit) Capsule 50 mcg PO DAILY trazodone 50 mg tablet 50 mg PO BEDTIME Rx Instructions: TAKE 1 TABLET BY MOUTH AT BEDTIME methylphenidate HCl [Concerta] 54 mg tablet extended release 24hr 54 mg PO DAILY desogestrel-ethinyl estradiol [Apri] 0.15-0.03 mg tablet 0.15 tab PO DAILY Discontinued bupropion HCl [Wellbutrin XL] 150 mg tablet extended release 24 hr 150 mg PO DAILY paliperidone [Invega] 6 mg tablet extended release 24 hr 12 mg PO DAILY citalopram [Celexa] 40 mg tablet 40 mg PO DAILY Discharge Orders: Discharge Order (Routine); Ordered 03/24/24 Ordered By: Cristhian Reddy Referrals: Christen Bains PMHNP [Staff Physician] - 04/02/24 12:45 pm (Follow up.) Massiel Palmer LPC [Therapist] - 05/01/24 2:45 pm (Follow up) Felipe Garcia MD [Primary Care Provider] - Discharge Diet: Usual diet Discharge Activity: Resume usual activity Patient Instructions: Opioid Safety Discharge Attestations NPU Time Spent in Discharge Care*: less than 30 min Specific Discharge Activities: Specific discharge activities: educating patient, discussing with child support case officer/social workers/dc planners and documenting/other paperwork Coding Level of Care Code Acute Code for [facility] Fwd Diagnoses Major depressive disorder, severe F32.2 Suicidal ideation R45.851 Depression with suicidal ideation F32.A; R45.851 Cluster B personality disorder F60.89 Cannabis use disorder F12.90 History of ADHD Z86.59 Mild intellectual disability F70 Tobacco use disorder F17.200 Autistic disorder F84.0 ADHD, predominantly inattentive type F90.0 Unspecified psychosis F29
[2024-03-24 13:28] VITALS: BP 139/71; PULSE 127; RESP 18; TEMP 36.8; O2SAT 96
[2024-03-24 14:00] VITALS: BP 123/75; PULSE 112; RESP 16; TEMP 36.6; O2SAT 97
[2024-03-24] MEDS: ibuprofen 600 mg Tablet PO (14:09)
== END 2024-03-24 15:19 | disposition home or self-care (01) | DRG 885 ==
LOC: ER 17:32 → NP 18:41
PROVIDERS: Admitting Provider Psychiatry & Neurology Psychiatry; Emergency Provider Emergency Medicine; PCP Family Medicine; Visit Provider Psychiatry & Neurology Psychiatry
DX: F33.2 Major depressive disorder, recurrent severe without psychotic features (principal); R45.851 Suicidal ideations; F60.89 Other specific personality disorders; F12.90 Cannabis use, unspecified, uncomplicated; F90.9 Attention-deficit hyperactivity disorder, unspecified type; F70 Mild intellectual disabilities; F17.290 Nicotine dependence, other tobacco product, uncomplicated; F84.0 Autistic disorder; F90.0 Attention-deficit hyperactivity disorder, predominantly inattentive type; F60.3 Borderline personality disorder; E66.3 Overweight; F63.9 Impulse disorder, unspecified; Z68.33 Body mass index [BMI] 33.0-33.9, adult
CPT/HCPCS: 36415; 80053; 80306; 80307; 81001; 81025; 84443; 85025; 93005; 96372; 97150; 97165; 99285; J1200; J1630; J2060

== ENCOUNTER 2024-08-13 14:49 | Inpatient (IN) | payer MEDICAID, SELFPAY ==
[2022-09-05 08:49] VITALS: BP 129/79; BMI 36.6
[2024-08-13 15:03] VITALS: BP 128/76; PULSE 105; RESP 16; TEMP 36.9; O2SAT 97
--- NOTE | 2024-08-13 15:03 | ECG_ITS ---
[facility]13 Pat Name: Norma Reese Department: Room: Gender: Female [employer] Practitioner: : 2005 Requested By: Emiliana Agrawal Order Number: [id number] Chaim MD: Vicente Capellan M.D. Measurements Intervals [place] Rate: 107 P: 35 MA: 143 QRS: 39 QRSD: 82 T: 19 QT: 338 QTc: 451 Interpretive Statements SINUS TACHYCARDIA LOW QRS VOLTAGE IN PRECORDIAL LEADS [QRS DEFLECTION < 1.0 mV IN CHEST LEADS] Compared to ECG 03/20/2024 16:18:10 Low QRS voltage now present Electronically Signed On 08-14-2024 14:52:17 CDT by Vicente Capellan M.D. [email or web address]
--- NOTE | 2024-08-13 15:06 | W.ED.PSYCHS ---
HPI - Psych General: Chief Complaint: Psychiatric Symptoms Stated Complaint: SI Time Seen by Provider: 08/13/24 14:52 History of Present Illness: 18 year old female with a history of morbid obesity, hypothyroidism, major depressive disorder, atypical psychosis, borderline personality disorder, mild intellectual disability and cannabis abuse who presents to the emergency room with suicidal thoughts. Apparently she lives in a shelter and she had written a note that says she is planning on killing herself either with a knife or a gun before her 19st birthday. She endorses this. Related Data Home Medications ?Medication ?Instructions ?Recorded ?Confirmed cholecalciferol (vitamin D3) 50 50 mcg PO DAILY 06/05/22 08/13/24 mcg (2,000 unit) capsule (Vitamin D3) methylphenidate HCl 54 mg 54 mg PO DAILY 03/20/24 08/13/24 tablet,extended release 24 hr (Concerta) desogestrel 0.15 mg-ethinyl 0.15 tab PO DAILY 03/23/24 08/13/24 estradiol 0.03 mg tablet (Apri) diphenoxylate-atropine 2.5 2 tab PO .Q6-8H PRN Diarrhea 08/13/24 08/13/24 mg-0.025 mg tablet levothyroxine 150 mcg tablet 150 mcg PO DAILY 08/13/24 08/13/24 Previous Rx's ?Medication ?Instructions ?Recorded bupropion HCl 300 mg 24 hr tablet, 300 mg PO QAM #30 tabs 06/26/24 extended release (Wellbutrin XL) citalopram 20 mg tablet 20 mg PO DAILY 30 days #30 tabs 06/26/24 paliperidone 9 mg tablet,extended 9 mg PO DAILY 30 days #30 tabs 06/26/24 release 24 hr trazodone 50 mg tablet 50 mg PO BEDTIME #30 tabs 06/26/24 Allergies Allergy/AdvReac Type Severity Reaction Status Date / Time No Known Allergies Allergy Verified 08/13/24 13:51 Review of Systems Narrative: Constitutional symptoms: Negative except as documented in HPI. Skin symptoms: Negative except as documented in HPI. Eye symptoms: Negative except as documented in HPI. ENMT symptoms: Negative except as documented in HPI. Respiratory symptoms: Negative except as documented in HPI. Cardiovascular symptoms: Negative except as documented in HPI. Gastrointestinal symptoms: Negative except as documented in HPI. Genitourinary symptoms: Negative except as documented in HPI. Musculoskeletal symptoms: Negative except as documented in HPI. Neurologic symptoms: Negative except as documented in HPI. Psychiatric symptoms: Negative except as documented in HPI. Endocrine symptoms: Negative except as documented in HPI. PFSH ED PFSH: Medical History (Updated 08/13/24 @ 16:16 by Emiliana Timmons MD) Tobacco use disorder On combination antipsychotic drug therapy Borderline personality disorder Cannabis abuse Major depressive disorder, recurrent, moderate Depression Psychiatric care Family History Family/Other Cancer lung Dementia Grandmother COPD (chronic obstructive pulmonary disease) Social History Smoking and tobacco/nicotine status: current every day tobacco/nicotine user e-cigarettes E-Cigarette Details: vaporizer device E-cig/vape details: 1 cartridge per week with nicotine Quit status (tobacco/nicotine): not considering quitting Second hand smoke exposure: Yes (everyone) Alcohol intake: never Substance/Drug Use: current Substance/Drug use frequency: few times a week Other substance/drug use details: when client has the money to purchase Adopted: No Caregiver/support person: No Lives independently: No Household members: family and other Details: Mother, sister, brother, and toddler or younger nieces and nephews Housing: House Marital status: Single Highest education level completed: 11th Grade Education level details: in 12th grade service: No Current occupational status: student Current occupational exposures/hazards: No Pets and animals: Yes Pets & animals: dog(s) Leisure activites: other Leisure activities details: walk, listen to music Sexually active: No Do you think of yourself as: Straight/Heterosexual Current gender identity: Female Rut/Lutheran: None Agree to transfusion: Yes Female Reproductive History: Para: 0 Spontaneous abortions: No Physical Exam Narrative: EXAM NARRATIVE: General: Alert. no acute distress Skin: Warm, dry Head: Normocephalic, atraumatic. Neck: Supple, trachea midline. Eye: Extraocular movements are intact. Ears, nose, mouth and throat: Oral mucosa moist. Cardiovascular: Regular rate and rhythm, Normal peripheral perfusion. Respiratory: Lungs are clear to auscultation, respirations are non-labored, breath sounds are equal, Symmetrical chest wall expansion. Gastrointestinal: Soft, Nontender, Non distended Musculoskeletal: Normal ROM, no deformity. Neurological: Alert and oriented. No focal neurological deficit observed. Psychiatric: Cooperative, depressed, expresses suicidal ideation. Course Vital Signs: Vital signs: Vital Signs Temperature 98.5 F 08/13/24 15:03 Pulse Rate 105 H 08/13/24 15:03 Respiratory Rate 16 08/13/24 15:03 Blood Pressure 128/76 08/13/24 15:03 Pulse Oximetry 97 08/13/24 15:03 Oxygen Delivery Me thod Room Air 08/13/24 15:03 MDM - Psych Medical Decision Making Differential diagnosis: Patient with reported depression and suicidal ideation. concerns for infection, alcohol intoxication, cardiac issues or other medical problems prior to psychiatric admission. Workup: labwork, ekg ordered to evaluate the pathologies and to clear the patient medically prior to psychiatric admission EKG: Time 1604. Rate 107. Sinus tachycardia, No ST-T changes, no ectopy, normal VA & QRS intervals, This was reviewed and interpreted by myself the ER physician at 1610 Lab Review: Laboratory results were reviewed and interpreted by myself the emergency room physician. - Medically cleared. - EKG shows no ischemic changes. - Blood alcohol level is negative, -Tylenol and salicylate levels are negative. - Drug screen is positive for marijuana - Patient has urinary tract infection. Keflex being initiated. - No anemia. - BUN and creatinine are within normal limits. ?TSH is low. This might warrant a medicine consultation. Does not appear to be in thyroid storm or anything like that. Consultation: I spoke with Dr. Wiseman who agrees to admission. Assessment and plan: Depression Suicidal ideation -Admission to neuropsychiatric unit for continued evaluation and treatment. - All lab work was reviewed and interpreted personally by myself, the ER physician - Evaluation and treatment of this problem were appropriate in the emergency setting Lab Data 08/13/24 15:37 08/13/24 15:37 Laboratory Results WBC 11.05 10^3/uL (4.5-13.0) 08/13/24 15:37 RBC 4.58 10^6/uL (3.85-5.65) 08/13/24 15:37 Hgb 12.00 g/dL (12.4-14.8) L 08/13/24 15:37 Hct 38.5 % (36-47) 08/13/24 15:37 MCV 84.1 fl (85-98) L 08/13/24 15:37 MCH 26.2 pg (27-33) L 08/13/24 15:37 MCHC 31.2 g/dL (30-55) 08/13/24 15:37 RDW 13.5 % (12.1-15.1) 08/13/24 15:37 Plt Count 333 10^3/cmm (157-399) 08/13/24 15:37 MPV 9.2 fL (7.4-10.4) 08/13/24 15:37 Neut % (Auto) 66.3 % 08/13/24 15:37 Lymph % (Auto) 23.8 % 08/13/24 15:37 [place] % (Auto) 7.9 % 08/13/24 15:37 Eos % (Auto) 1.1 % 08/13/24 15:37 Baso % (Auto) 0.5 % 08/13/24 15:37 Neut # (Auto) 7.34 10^3/uL (1.8-8.0) 08/13/24 15:37 Lymph # (Auto) 2.6 10^3/uL (1.5-6.5) 08/13/24 15:37 [place] # (Auto) 0.9 10^3/uL (0.2-0.9) 08/13/24 15:37 Eos # (Auto) 0.1 10^3/uL (0.0-0.8) 08/13/24 15:37 Baso # (Auto) 0.1 10^3/uL (0.0-0.1) 08/13/24 15:37 Nucleated RBC % (auto) 0 % 08/13/24 15:37 Nucleated RBCs # 0.0 /100WBC 08/13/24 15:37 Sodium 138 mmol/L (136-145) 08/13/24 15:37 Potassium 3.8 mmol/L (3.5-5.1) 08/13/24 15:37 Chloride 100 mmol/L (98-107) 08/13/24 15:37 Carbon Dioxide 25 mmol/L (22-29) 08/13/24 15:37 Anion Gap 16.8 (5-19) 08/13/24 15:37 BUN 10 mg/dL (6-20) 08/13/24 15:37 Creatinine 0.7 mg/dL (0.5-0.9) 08/13/24 15:37 GFR Calculation 106.7 mL/min (90-130) 08/13/24 15:37 Glucose 92 mg/dL (65-115) 08/13/24 15:37 Calculated Osmolality 285 mOsm/kg (285-295) 08/13/24 15:37 Calcium 9.0 mg/dL (8.5-10.5) 08/13/24 15:37 Total Bilirubin 0.2 mg/dL (0.15-1.2) 08/13/24 15:37 AST 20 U/L (0-32) 08/13/24 15:37 ALT 19 U/L (0-33) 08/13/24 15:37 Alkaline Phosphatase 76 U/L (35-105) 08/13/24 15:37 Total Protein 7.7 g/dL (6.6-8.7) 08/13/24 15:37 Albumin 3.4 g/dL (3.5-5.2) L 08/13/24 15:37 Globulin 4.3 g/dL (1.3-4.6) 08/13/24 15:37 TSH 0.10 uIU/mL (0.27-4.20) L 08/13/24 15:37 HCG, Qual Negative (Negative) 08/13/24 15:13 Urine Color Yellow (Yellow) 08/13/24 15:13 Urine Appearance Cloudy (CLEAR) A 08/13/24 15:13 Urine pH 7.5 (5-7) 08/13/24 15:13 Ur Specific [place] 1.022 (1.005-1.030) 08/13/24 15:13 Urine Protein Negative (Negative) 08/13/24 15:13 Urine Glucose (UA) Negative (Normal) 08/13/24 15:13 Urine Ketones Negative (Negative) 08/13/24 15:13 Urine Blood 1+ (Negative) A 08/13/24 15:13 Urine Nitrate Negative (Negative) 08/13/24 15:13 Urine Bilirubin Negative (Negative) 08/13/24 15:13 Urine Urobilinogen 1.0 mg/dL (Negative) 08/13/24 15:13 Ur Leukocyte Esterase 2+ (Negative) A 08/13/24 15:13 Urine RBC 0-2 /hpf (0-2) 08/13/24 15:13 Urine WBC 21-50 /hpf (0-5) H 08/13/24 15:13 Ur Squamous Epith Cells 11-20 /hpf (0-5) H 08/13/24 15:13 Amorphous Sediment Not Reportable 08/13/24 15:13 Urine Bacteria 2+ /hpf (NONE) H 08/13/24 15:13 Hyaline Casts 1.21 /lpf 08/13/24 15:13 Salicylates < 0.3 mg/dL (3-10) L 08/13/24 15:37 Urine Opiates Screen Negative ng/mL (Negative) 08/13/24 15:13 Acetaminophen < 5.0 ug/mL (10-30) L 08/13/24 15:37 Ur Barbiturates Screen Negative ng/mL (Negative) 08/13/24 15:13 Ur Phencyclidine Scrn Negative ng/mL (Negative) 08/13/24 15:13 Ur Amphetamines Screen Negative ng/mL (Negative) 08/13/24 15:13 U Benzodiazepines Scrn Negative ng/mL (Negative) 08/13/24 15:13 Urine Cocaine Screen Negative ng/mL (Negative) 08/13/24 15:13 U Marijuana (THC) Screen Positive ng/mL (Negative) H 08/13/24 15:13 Ethyl Alcohol < 10 mg/dL (0-10) 08/13/24 15:37 No radiology studies performed this visit Discharge Plan Discharge Patient Disposition: Admitted As Inpatient Admit Provider: Cristhian Reddy Clinical Impression: Suicidal ideation, Depression, Urinary tract infection Condition: Stable Coding Level of Care Code ED Pitch Filler for Linda Franklin
[2024-08-13 15:21] LABS: Bilirubin Urine Negative (Negative); Blood Urine 1+ (Negative); Glucose Urine UA Negative (Normal); Ketones Urine Negative (Negative); Leukocyte Esterase Urine 2+ (Negative); Nitrate Urine Negative (Negative); Protein Urine Negative (Negative); Specific Gravity, Urine 1.022 (1.005-1.030); Urine Appearance Cloudy (CLEAR); Urine Color Yellow (Yellow); pH Urine 7.5 (5-7)
[2024-08-13 15:26] LABS: Add Urine Microscopic? YES; Bacteria Urine 2+ /hpf; Hyaline Casts Urine 1.21 /lpf; RBC Urine 0-2 /hpf (0-2); WBC Urine 21-50 /hpf (0-5)
[2024-08-13 15:27] LABS: Amphetamines Screen Urine Negative (Negative); Barbiturates Screen Urine Negative (Negative); Benzodiazepines Screen Urine Negative (Negative); Cocaine Screen Urine Negative (Negative); Opiate Screen Urine Negative (Negative); PCP Screen Urine Negative (Negative); THC Screen Urine Positive (Negative)
[2024-08-13 15:32] LABS: HCG Qualitative Urine. Negative (Negative)
[2024-08-13 15:46] LABS: Basophils # 0.1 10^3/uL (0.0-0.1); Basophils % 0.5 %; Eosinophils # 0.1 10^3/uL (0.0-0.8); Eosinophils % 1.1 %; Hematocrit 38.5 % (36-47); Lymphocytes # 2.6 10^3/uL (1.5-6.5); Lymphocytes % 23.8 %; Mean Corpuscular HGB Conc 31.2 g/dL (30-55); Mean Corpuscular Hemoglobin 26.2 pg (27-33); Mean Corpuscular Volume 84.1 fl (85-98); Mean Platelet Volume 9.2 fL (7.4-10.4); Monocytes # 0.9 10^3/uL (0.2-0.9); Monocytes % 7.9 %; Neutrophils # 7.34 10^3/uL (1.8-8.0); Neutrophils % 66.3 %; Nucleated Red Blood Cells % 0 %; Platelet Count 333 10^3/cmm (157-399); Red Blood Count 4.58 10^6/uL (3.85-5.65); Red Cell Distribution Width 13.5 % (12.1-15.1); White Blood Count 11.05 10^3/uL (4.5-13.0)
--- NOTE | 2024-08-13 16:01 | PC.NURSE ---
96 hour hold rights read and reviewed with patient. Patient concerned about appointment at [facility] on Saturday 08/19. This nurse let patient know we will help her figure that appointment date and time out. Patient verbalized understandings and copy of rights given to patient.
[2024-08-13 16:19] LABS: Alanine Aminotransferase 19 U/L (0-33); Albumin Level 3.4 g/dL (3.5-5.2); Alkaline Phosphatase 76 U/L (35-105); Anion Gap 16.8 (5-19); Aspartate Amino Transferase 20 U/L (0-32); Blood Urea Nitrogen 10 mg/dL (6-20); Carbon Dioxide 25 mmol/L (22-29); Chloride 100 mmol/L (98-107); Globulin 4.3 g/dL (1.3-4.6); Glomerular Filtration Rate 106.7 mL/min (90-130); Glucose 92 mg/dL (65-115); Osmolality Calculated 285 mOsm/kg (285-295); Potassium 3.8 mmol/L (3.5-5.1); Sodium 138 mmol/L (136-145); Total Bilirubin 0.2 mg/dL (0.15-1.2); Total Protein 7.7 g/dL (6.6-8.7)
[2024-08-13 16:21] LABS: Acetaminophen < 5.0 ug/mL (10-30); Alcohol Level < 10 mg/dL (0-10); Salicylate < 0.3 mg/dL (3-10)
[2024-08-13 17:04] VITALS: BP 133/86; PULSE 102; RESP 16; TEMP 37.2
[2024-08-13] MEDS: hyDROXYzine 25 mg Capsule 50 MG PO (18:10)
[2024-08-13] MEDS: nicotine 4 mg lozenge MUCOUS MEM (18:10)
[2024-08-13] MEDS: LORazepam 2 mg/mL INJ 1 mL IM (19:30)
[2024-08-13] MEDS: diphenhydrAMINE 50 mg/mL SDV 1mL IM (19:30)
[2024-08-13] MEDS: haloperidol inj 5 mg/mL INJ 1 mL IM (19:30)
--- NOTE | 2024-08-13 20:35 | XRR_ITS ---
PROCEDURE INFORMATION: Exam: XR Left Hand Exam date and time: 08/13/2024 8:48 PM Age: 18 years old Clinical indication: Pain; Hand; Left; Additional info: Left hand injury with pain/ brusing to little finger. TECHNIQUE: Imaging protocol: Radiologic exam of the left hand. Views: 3 or more views. COMPARISON: No relevant prior studies available. FINDINGS: Bones/joints: Normal. Soft tissues: Normal. XR/XR hand LT min 3V* [id number] IMPRESSION: No acute findings.
[2024-08-13 21:14] VITALS: BP 133/74; PULSE 105; RESP 20; TEMP 37.2; O2SAT 96
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
[2024-08-13] MEDS: cephALEXin 500 mg Capsule PO (21:55)
[2024-08-14 06:00] VITALS: BP 113/66; PULSE 108; RESP 17; TEMP 36.7; O2SAT 94
--- NOTE | 2024-08-14 10:31 | W.PM.NPUH&PS ---
Providers/Chief Complaint Admitting Physician: Cristhian Reddy MD Primary Care Provider: Felipe Garcia MD Chief Complaint: SI HPI NPU History of Present Illness Norma Reese is a 18 year old female who presented to the emergency department with the following report: Chief Complaint: Psychiatric Symptoms Stated Complaint: SI Time Seen by Provider: 08/13/24 14:52 History of Present Illness: 18 year old female with a history of morbid obesity, hypothyroidism, major depressive disorder, atypical psychosis, borderline personality disorder, mild intellectual disability and cannabis abuse who presents to the emergency room with suicidal thoughts. Apparently she lives in a half-way and she had written a note that says she is planning on killing herself either with a knife or a gun before her 19st birthday. She endorses this. She was admitted to the neuropsychiatric unit for definitive treatment of those issues. She is known to [facility] psychiatry through inpatient and outpatient services. Her last inpatient stay was in March of this year. An excerpt of that discharge summary is included below for context and the fact that there are no substantive changes. This presentation appears to be reflective of her common theme of whether there has been a clear decompensation that this represents her intellectual limitations. She is a poor historian and unable to really give great history. Essentially she presents as she normally does reporting that there was some marginal issue that led to things getting out of control and her feeling suicidal. She reported that she reviewed the situation with those close to her and they recommended that she came to the hospital. She reports that she lives at home with her mother and her mother is trying to obtain guardianship. She reports that she is hopeful that she does not have to stay long because she thinks she will feel better. We agreed with that we would review her medications and identify whether there were any changes that seem reasonable but agreed we would get collateral information from her mother prior to any changes. Per her 03/24/2024 [facility] inpatient psychiatric discharge summary: Diagnoses at Discharge Discharge Diagnosis (1) Major depressive disorder, severe: Status: Acute (2) Suicidal ideation: Status: Resolved (3) Depression with suicidal ideation: Status: Resolved (4) Cluster B personality disorder: Status: Acute (5) Cannabis use disorder: Status: Resolved (6) History of ADHD: Status: Acute (7) Mild intellectual disability: Status: Acute (8) Tobacco use disorder: Status: Acute (9) Autistic disorder: Status: Acute (10) ADHD, predominantly inattentive type: Status: Acute (11) Unspecified psychosis: Status: Acute Reason for Visit Reason for Visit: SI Brief History: History of Present Illness Norma Reese is a 18 year old female with a history of major depressive disorder, atypical psychosis, borderline personality disorder, mild intellectual disability and cannabis abuse who presented to the behavioral health clinic for an intake on 03/20/2024. The patient during the evaluation had reported increased frequency of suicidal thoughts. She had endorsed having a plan to overdose or cut herself. The patient's mother had reported that the patient had threatened overdose and she had reported that she locked up the patient's medications in order to keep her from taking them. She had reported sleeping excessively and reported that she was struggling with weight gain. The patient was then brought to the emergency department for further evaluation and admitted to the neuropsychiatric unit for further treatment. Today, the patient reports that she has been increasingly stressed at work. She reports some struggles with following directions and states that she frequently feels tired. She reports that the voices have not been as prominent but does report feeling more depressed. She denied any other recent stressors but reports that she has only been going to therapy approximately once a month. She had reported that she had been worried about losing her job. She reports that she has had some thoughts of cutting herself but had not been cutting recently. She denied any illicit drug use or alcohol use. The patient reports anhedonia. She reports more frequent periods of tearfulness. She denies any manic symptoms. She does report having chronic problems with worry. Inpatient psychiatric history: Multiple inpatient psychiatric hospitalizations beginning at the age of 15. Her most recent hospitalization occurred 16 months ago. Outpatient psychiatric history: She is followed at [facility] [place]. She has been diagnosed with mild cognitive impairment, ADHD, and psychotic disorder not otherwise specified along with MDD, Autistic disorder and borderline personality disorder. She has been seeing therapist at [facility] [place] monthly, last visit with psychiatric provider was last month. Current Medications: Concerta 54 mg daily, Synthroid 125 mcg daily, Celexa 40 mg daily, vitamin D3, Wellbutrin XL 150 mg daily, Invega 12 mg daily, hydroxyzine Drug and alcohol history: She denies any alcohol use, she had reported in the past having used marijuana but is not using currently. She had reported currently vaping and had previously endorsed nicotine use. Legal history: None Medical history: Vitamin D deficiency, hypothyroidism Surgeries: Tonsillectomy, Ear tube placement. Allergies no known drug allergies Family History: She denies mental health issues on either side of the family, addiction issues on her father?s side of the family and in her brother and suicide attempts/completion on her mother?s side of the family and her brother. Developmental History: She reports she was premature and her mother was in labor for 5 days, did not know if she met her developmental milestones on time but reports receiving speech therapy and special education classes. She had an IEP, and graduated with special diploma. Psychosocial History: She reports her parents were not together when she was born. She has 2 siblings who are products of the same union and her mother has one additional child. She reports she could not remember much about her childhood but endorses emotional abuse. She denies CYS involvement. She reports bullying in school environment. She endorses being heterosexual with her longest relationship for 1 month. She has never been , does not have children, has not been in the and denies a mandaeism belief system. Her longest employment history is 6 months. She currently lives in a house with her mother, sister, brother, and multiple nieces and nephews. 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 Hospital Course During the hospitalization, the patient had routine laboratory studies which were within normal limits except for a few outliers. Patient had initially reported feeling tired and reported visual hallucinations of seeing shadows. Patient had also then reported at a later date of hearing voices. She had endorsed depression and Wellbutrin XL was increased from 150 mg on admission to 300 mg daily. Furthermore, Celexa was decreased from 40 mg daily to 20 mg daily with no worsening mood reported. The patient's Concerta was restarted to target ADHD. The patient's Invega was reduced from 12 mg daily to 9 mg daily with decreased fatigue and decrease in sedation reported by the patient at the time of discharge. Additionally, there was a general medical evaluation which was also within normal limits and revealed no new acute processes. At the time of discharge, lethality was denied and psychosis was resolving. Mood and anxiety were well managed. The patient endorsed a plan to avoid all drugs of abuse and follow up with the aftercare recommendations of the treatment team. The patient was evaluated and deemed to be absent credible lethality and had achieved the maximum benefit from an inpatient hospitalization, and so was discharged. Meds NPU Home Medications ?Medication ?Instructions ?Recorded ?Confirmed ?Last Taken ?Type cholecalciferol (vitamin D3) 50 50 mcg PO DAILY 06/05/22 08/13/24 08/13/24 History mcg (2,000 unit) capsule (Vitamin D3) methylphenidate HCl 54 mg 54 mg PO DAILY 03/20/24 08/13/24 08/13/24 History tablet,extended release 24 hr (Concerta) desogestrel 0.15 mg-ethinyl 0.15 tab PO DAILY 03/23/24 08/13/24 08/13/24 History estradiol 0.03 mg tablet (Apri) bupropion HCl 300 mg 24 hr tablet, 300 mg PO QAM #30 tabs 06/26/24 08/13/24 08/13/24 Rx extended release (Wellbutrin XL) citalopram 20 mg tablet 20 mg PO DAILY 30 days #30 tabs 06/26/24 08/13/24 08/13/24 Rx paliperidone 9 mg tablet,extended 9 mg PO DAILY 30 days #30 tabs 06/26/24 08/13/24 08/13/24 Rx release 24 hr trazodone 50 mg tablet 50 mg PO BEDTIME #30 tabs 06/26/24 08/13/24 08/13/24 Rx diphenoxylate-atropine 2.5 2 tab PO .Q6-8H PRN Diarrhea 08/13/24 08/13/24 Unknown History mg-0.025 mg tablet levothyroxine 150 mcg tablet 150 mcg PO DAILY 08/13/24 08/13/24 08/13/24 History Allergies Allergy/AdvReac Type Severity Reaction Status Date / Time No Known Allergies Allergy Verified 08/13/24 13:51 PFSH NPU PFSH: Medical History (Updated 08/13/24 @ 16:16 by Emiliana Timmons MD) Tobacco use disorder On combination antipsychotic drug therapy Borderline personality disorder Cannabis abuse Major depressive disorder, recurrent, moderate Depression Psychiatric care Family History Family/Other Cancer lung Dementia Grandmother COPD (chronic obstructive pulmonary disease) Social History Smoking and tobacco/nicotine status: current every day tobacco/nicotine user e-cigarettes E-Cigarette Details: vaporizer device E-cig/vape details: 1 cartridge per week with nicotine Quit status (tobacco/nicotine): not considering quitting Second hand smoke exposure: Yes (everyone) Alcohol intake: never Substance/Drug Use: current Substance/Drug use frequency: few times a week Other substance/drug use details: when client has the money to purchase Adopted: No Caregiver/support person: No Lives independently: No Household members: family and other Details: Mother, sister, brother, and toddler or younger nieces and nephews Housing: House Marital status: Single Highest education level completed: 11th Grade Education level details: in 12th grade service: No Current occupational status: student Current occupational exposures/hazards: No Pets and animals: Yes Pets & animals: dog(s) Leisure activites: other Leisure activities details: walk, listen to music Sexually active: No Do you think of yourself as: Straight/Heterosexual Current gender identity: Female Rut/Restorationism: None Agree to transfusion: Yes Female Reproductive History: Para: 0 Spontaneous abortions: No Mental Status Exam MSE Comments: This is a short, morbidly obese white adolescent woman with hosptial scrubs on with poor grooming and limited eye contact. No abnormal movements except for mild psychomotor retardation. Cooperative with exam in mild distress. Speech was normal rate and volume with some difficulty with hours. Mood described as okay but I was feeling suicidal, affect is slightly subdued. Thought process, organized. Thought content: patient endorsed suicidal ideation and denies homicidal ideation, no delusions reported or noted and denies auditory or visual hallucinations. Attention and concentration are intact and memory appeared somewhat reliable but none were formally tested. She is alert and oriented x 3. Insight, judgment and impulse control are all limited versus impaired. Intellectual ability is consistent with mild intellectual disability versus borderline intellectual functioning. Vitals/I&O/Wt Last Vital Signs Temp 98.0 F 08/14/24 06:00 Pulse 108 H 08/14/24 06:00 Resp 17 08/14/24 06:00 BP 113/66 08/14/24 06:00 Pulse Ox 94 08/14/24 06:00 O2 Del Method Room Air 08/14/24 06:00 Weight last 48 hrs Weight 127.459 kg Data NPU 08/13/24 15:37 06/12/25 15:37 A&P Assessment and plan (1) Depression: (2) Borderline personality disorder: (3) Cannabis abuse: (4) Major depressive disorder, severe: (5) Mild intellectual disability: (6) Autistic disorder: Plan This is a 18-year-old female with a history of intellectual disability depression, anxiety and frequent self-injurious behavior/reports of suicidal ideation with frequent hospitalizations secondary to her poor impulse control, cluster B pathology and limited coping skills presents with limited symptoms other than reporting that she was feeling unsafe and having suicidal thoughts and that it was recommended that she come to the hospital. 1. Continue current medication. We will evaluate whether there is any clear indication to make any changes which will determine whether this is a quick admission and discharge. Or not. 2. Continue to advise patient to work with the outpatient team at increased CBT and DBT treatment given the lack of credible lethality and the likelihood for this being self-injurious behavior against the backdrop of cluster B pathology. 3. Continue every 15 minute checks for safety. 4. Encourage individual, group and milieu therapy. 5. Obtain collateral information. 6. Identify whether this represents a decompensation or is the intermittent explosive poor impulse control that can be seen with individuals with intellectual disability. PDMP PDMP Reviewed: Not Reviewed Involuntary Hold Information Hold Status: Legal Status: 96 Hour Hold Date/Time Hold Expires: 08/19/24@1527 96 Hour Hold: 96 Hour Involuntary Admission: Yes Other Hold: Hold End Date: 03/26/24 Attestations NPU Medical Necessity Statement*: Inpatient hospitalization is medically necessary and the clinically appropriate intervention at this time. We will monitor medications and make changes as indicated. Patient will be in the hospital for over two midnights. Likely length of stay is 2-4 days. Coding Level of Care Code Acute Code for [facility] Fwd Diagnoses Depression F32.A Borderline personality disorder F60.3 Cannabis abuse F12.10 Major depressive disorder, severe F32.2 Mild intellectual disability F70 Autistic disorder F84.0
[2024-08-14 14:00] VITALS: BP 114/72; PULSE 110; RESP 18; TEMP 36.7; O2SAT 95
--- NOTE | 2024-08-14 15:02 | PC.NURSE ---
Signee asked pt. if she wanted her ABT and pt. stated no. signee asked why she was on an ABT and pt. replied because I have diarrhea, but I haven't had it today, so I don't need it.
[2024-08-14] MEDS: diphenhydrAMINE 50 mg/mL SDV 1mL IM (17:40)
[2024-08-14] MEDS: haloperidol inj 5 mg/mL INJ 1 mL IM (17:40)
[2024-08-14] MEDS: LORazepam 2 mg/mL INJ 1 mL IM (17:40)
--- NOTE | 2024-08-14 17:58 | PC.NURSE ---
At approximately 1730, I was at the nurses' station window after assisting with another patient having behavior issues when patient started asking to be let out. Emilee Dunlap, RN was inside of the nurses' station and explained that patient couldn't go out that door. She then turned to me and asked me to open the door, which I explained I wasn't going to open the door for her, either. She asked Angela and I back and forth for a couple of minutes then started hitting the door and the wall beneath the windows of the nurses' station. During this time, a Code 10 was called for the other patient, at approximately 1733. Angela went and obtained the restraint bed in case either patient were to need it as both were escalating. I came around the end of the nurses' station window just as Security arrived to the unit and Fantasma Álvarez CNA came out of another room. Myself, Talya, and Ronny with [facility] attempted to speak with patient and explain that she was on a hold, however the physician would still make the decision if she were to be d/c'd tomorrow. Aixa Lopez RN, NARCISA Wise, Osmani Worley, RN arrived and assisted in de-escalation. Patient began asking for her vape, to which we explained she could have nicotine gum, lozenge, or a patch and she refused all options. After asking again for her vape and hitting the door multiple times, she stated she was going to fight all of you and stated I'm going home . She walked past Talya, myself, and Ronny, around the restraint bed that was in the hallway, and [facility]. As I turned the corner to follow her, Ronny and Marshall were ahead of Kiya Babin Erica, and I. Patient attempted what appeared to hit the wall again and as I rounded the corner, Ronny and Marshall had patient in a SAFE trained SALT hold and were starting to escort her down the wang when Prince, Epoxy Specialist joined them as well. Diana Worley, Llama Farmer preceded them to unlock the seclusion door. Patient was escorted into seclusion by Renato, assisted onto the mattress, then stepped out for the door to be closed at 1736. Patient immediately got up from the mattress and started yelling to be let out. Ronny attempted to explain to her that she would need to regain control and could then be let out, however patient started banging her head against the door and wall. We made the decision at that time to retrieve the restraint bed, place patient on the restraint bed, and administer PRN medications. Ronny Olivares, Prince, Kathleen, and Altagracia utilized a team approach and opened the door after Verito Vasquez RN obtained the PRN medications of Benadryl 50 mg, Haldol 5 mg, and Ativan 2 mg in two separate syringes. She assisted with the patient while Osmani Worley RN and I prepared to administer medications. I reviewed medications with Kiya and identified each syringe. Patient was manually restrained utilizing SAFE techniques appropriately, assisted onto the restraint bed, and 4-point restraints were placed. Kiya and Shagufta administered the PRN medications as follows: I administered Benadryl 50 mg via IM to the right deltoid and Kiya administered Haldol 5 mg and Ativan 2 mg via IM to left deltoid simultaneously at approximately 1740. Ronny remained 1:1 with patient and continued de-escalation techniques. I took patient's glasses to the nurses' station and disposed of sharps. Angela remained with the patient as well, performing assessments, Verito Colunga CNA is present obtaining VS. I confirmed with Ronny and Angela that there were no further needs at this time prior to leaving to take patient's glasses back to the nurses' station. Verito Vasquez RN contacted Dr. Camacho and informed him of the need for [id number].
--- NOTE | 2024-08-14 18:03 | PC.NURSE ---
Pt. in restraints to do wanting to fight staff and getting physical with staff. Pt.'s right leg restraint was removed at 1800, ROM allowed. Pt. verbalized she was still mad and agitated. Other restraints and circulation was checked at this time.
--- NOTE | 2024-08-14 18:15 | PC.NURSE ---
Pt. still in restraints. Right arm was released, ROM allowed, and other extremities checked for circulation. Pt. is starting to calm down so she says.
[2024-08-14] MEDS: cephALEXin 500 mg Capsule PO (21:39)
[2024-08-14] MEDS: trazodone 50 mg Tablet PO (21:39)
--- NOTE | 2024-08-14 22:25 | PC.NURSE ---
vs not collected per charge nurse resp 16
[2024-08-15 06:00] VITALS: BP 103/60; PULSE 95; RESP 18; TEMP 36.8; O2SAT 93
[2024-08-15] MEDS: haloperidol 5 mg Tablet PO ×2 (08:38→14:45)
[2024-08-15] MEDS: cephALEXin 500 mg Capsule PO ×3 (08:38→19:37)
[2024-08-15] MEDS: hyDROXYzine 25 mg Capsule 50 MG PO ×2 (08:46→14:45)
[2024-08-15] MEDS: OLANZapine 5 mg ODT PO (13:54)
[2024-08-15] MEDS: acetaminophen 325 mg Tablet 650 MG PO (13:54)
[2024-08-15 14:00] VITALS: BP 90/60; PULSE 133; RESP 16; TEMP 37.2; O2SAT 95
[2024-08-15] MEDS: ibuprofen 600 mg Tablet PO (14:46)
--- NOTE | 2024-08-15 14:57 | PC.NURSE ---
This nurse approached pt in pt's room, pt was holding both sides of head with two hands. This nurse sat on the bed and pt sat next to nurse, pt expressed that she was hearing voices that were telling her to do bad things. This nurse encouraged pt to take some PRN medication to help with that and pt agreed. Pt also stated that her hands were hurting from punching the wall on the previous shift. Pt is now in the dayroom working on a word search to keep her mind busy.
--- NOTE | 2024-08-15 15:01 | PC.NURSE ---
Pt stated that she is going to end it all, on her birthday . Pt's birthday is the [birth year] when pt will turn 19.
[2024-08-15] MEDS: haloperidol inj 5 mg/mL INJ 1 mL IM (15:39)
[2024-08-15] MEDS: LORazepam 2 mg/mL INJ 1 mL IM (15:39)
[2024-08-15] MEDS: diphenhydrAMINE 50 mg/mL SDV 1mL IM (15:40)
--- NOTE | 2024-08-15 15:53 | PC.NURSE ---
Pt. started to self harm by putting her fingernail into her wrist. Pt. was brought up to the bench and continues to do so when asked not to. Pt. became verbally aggressive and argumentive. Security was called to be present in the unit hoping it would de-escalate situation. When pt. saw security pt. went to her room. Security tried to talk to pt. Pt. began hitting and kicking the wall, then banging her head on the wall was asked to stop and continued to kick at wall. B-52 was pulled and pt. was given the injections.
--- NOTE | 2024-08-15 16:22 | PC.NURSE ---
Pt self harming by digging fingernails into both wrists. Nursing staff encouraged pt to come and sit on the bench in view of the nurses station, pt complied, but still preforming self harm acts. Pt then got up and walked fast to her room and shut the door fully, nursing staff and security entered room and pt began to hit the window seal with closed fists. Nursing staff then administered medication to pt. See MAY. 1:1 sitter now present.
--- NOTE | 2024-08-15 18:38 | P.NPUPN_ITS ---
Subjective NPU 2 Subjective: Patient presented today reporting that she is doing okay but having had a problematic morning with need for as needed medication and having significant difficulties with impulse control. Leads that she is focused on self harming and she had no real explanation for why she was having a rough time now overall and why she is struggling with this today. We continue to discuss a desire to not have this be an extended stay given the limited utility found for inpatient treatment for borderline personality disorder. She denied any side effects to her medication. Mental Status Exam 2 MSE Comments: This is a short, morbidly obese white adolescent woman with hosptial scrubs on with poor grooming and limited eye contact. No abnormal movements except for mild psychomotor retardation. Cooperative with exam in mild distress. Speech was normal rate and volume with some difficulty with hours. Mood described as okay but I was feeling suicidal, affect is slightly subdued. Thought process, organized. Thought content: patient endorsed suicidal ideation and denies homicidal ideation, no delusions reported or noted and denies auditory or visual hallucinations. Attention and concentration are intact and memory appeared somewhat reliable but none were formally tested. She is alert and oriented x 3. Insight, judgment and impulse control are all limited versus impaired. Intellectual ability is consistent with mild intellectual disability versus borderline intellectual functioning. Vitals/I&O/Wt Last Vital Signs Temp 98.9 F 08/15/24 14:00 Pulse 133 H 08/15/24 14:00 Resp 16 08/15/24 14:00 BP 90/60 08/15/24 14:00 Pulse Ox 95 08/15/24 14:00 O2 Del Method Room Air 08/15/24 06:00 Data NPU 08/13/24 15:37 08/13/24 15:37 A&P Assessment and plan (1) Depression: (2) Borderline personality disorder: (3) Cannabis abuse: (4) Major depressive disorder, severe: (5) Mild intellectual disability: (6) Autistic disorder: Plan This is a 18-year-old female with a history of intellectual disability depression, anxiety and frequent self-injurious behavior/reports of suicidal ideation with frequent hospitalizations secondary to her poor impulse control, cluster B pathology and limited coping skills presents with limited symptoms other than reporting that she was feeling unsafe and having suicidal thoughts and that it was recommended that she come to the hospital. 1. Continue current medication. We will evaluate whether there is any clear indication to make any changes which will determine whether this is a quick admission and discharge. Or not. 2. Continue to advise patient to work with the outpatient team at increased CBT and DBT treatment given the lack of credible lethality and the likelihood for this being self-injurious behavior against the backdrop of cluster B pathology. 3. Continue every 15 minute checks for safety. 4. Encourage individual, group and milieu therapy. 5. Obtain collateral information. 6. Identify whether this represents a decompensation or is the intermittent explosive poor impulse control that can be seen with individuals with intellectual disability. PDMP PDMP Reviewed: Not Reviewed Involuntary Hold Information 2 Hold Status: Legal Status: 96 Hour Hold Date/Time Hold Expires: 08/19/26 @ 15:27 96 Hour Hold: 96 Hour Involuntary Admission: Yes Other Hold: Hold End Date: 03/26/24 Attestations NPU 2 Medical Necessity Statement*: Inpatient hospitalization is medically necessary and the clinically appropriate intervention at this time. We will monitor medications and make changes as indicated. Likely length of stay is 2-4 days. Coding Level of Care Code Acute Code for [facility] Fwd Diagnoses Depression F32.A Borderline personality disorder F60.3 Cannabis abuse F12.10 Major depressive disorder, severe F32.2 Mild intellectual disability F70 Autistic disorder F84.0
[2024-08-15] MEDS: trazodone 50 mg Tablet PO (19:37)
[2024-08-15 19:39] VITALS: BMI 50.3
[2024-08-15 22:00] VITALS: BP 126/74; PULSE 120; RESP 20; TEMP 36.7; O2SAT 94
[2024-08-16 06:00] VITALS: BP 118/74; PULSE 92; RESP 17; TEMP 37.1; O2SAT 95
[2024-08-16] MEDS: cephALEXin 500 mg Capsule PO ×3 (08:52→20:07)
[2024-08-16] MEDS: hyDROXYzine 25 mg Capsule 50 MG PO (08:52)
--- NOTE | 2024-08-16 09:12 | W.PM.NPUPNS ---
Subjective NPU Subjective: Patient presented today reporting that things are going okay. She continued to have outbursts and the need for as needed medication. But was focused on when she might be able to be discharged. She reports that her medications seem to stop working and that she was doing fine before that her mother make sure that she takes her medication religiously. We discussed the risks, benefits and alternatives of possibly increasing both her Invega and her Wellbutrin XL and she understood and agreed to proceed as is documented in this note. Mental Status Exam MSE Comments: This is a short, morbidly obese white adolescent woman with hosptial scrubs on with poor grooming and limited eye contact. No abnormal movements except for mild psychomotor retardation. Cooperative with exam in mild distress. Speech was normal rate and volume with some difficulty with hours. Mood described as okay but I was feeling suicidal, affect is slightly subdued. Thought process, organized. Thought content: patient endorsed suicidal ideation and denies homicidal ideation, no delusions reported or noted and denies auditory or visual hallucinations. Attention and concentration are intact and memory appeared somewhat reliable but none were formally tested. She is alert and oriented x 3. Insight, judgment and impulse control are all limited versus impaired. Intellectual ability is consistent with mild intellectual disability versus borderline intellectual functioning. Vitals/I&O/Wt Last Vital Signs Temp 98.7 F 08/16/24 06:00 Pulse 92 08/16/24 06:00 Resp 17 08/16/24 06:00 BP 118/74 08/16/24 06:00 Pulse Ox 95 08/16/24 06:00 O2 Del Method Room Air 08/16/24 06:00 Weight last 48 hrs Weight 120.769 kg Data NPU 08/13/24 15:37 08/13/24 15:37 A&P Assessment and plan (1) Depression: (2) Borderline personality disorder: (3) Cannabis abuse: (4) Major depressive disorder, severe: (5) Mild intellectual disability: (6) Autistic disorder: Plan This is a 18-year-old female with a history of intellectual disability depression, anxiety and frequent self-injurious behavior/reports of suicidal ideation with frequent hospitalizations secondary to her poor impulse control, cluster B pathology and limited coping skills presents with limited symptoms other than reporting that she was feeling unsafe and having suicidal thoughts and that it was recommended that she come to the hospital. 1. Continue current medication. We will evaluate whether there is any clear indication to make any changes which will determine whether this is a quick admission and discharge. Or not. 2. Continue to advise patient to work with the outpatient team at increased CBT and DBT treatment given the lack of credible lethality and the likelihood for this being self-injurious behavior against the backdrop of cluster B pathology. 3. Continue every 15 minute checks for safety. 4. Encourage individual, group and milieu therapy. 5. Obtain collateral information. 6. Identify whether this represents a decompensation or is the intermittent explosive poor impulse control that can be seen with individuals with intellectual disability. PDMP PDMP Reviewed: Not Reviewed Involuntary Hold Information Hold Status: Legal Status: 96 Hour Hold Date/Time Hold Expires: 08/19/26 @ 15:27 96 Hour Hold: 96 Hour Involuntary Admission: Yes Other Hold: Hold End Date: 03/26/24 Attestations NPU Medical Necessity Statement*: Inpatient hospitalization is medically necessary and the clinically appropriate intervention at this time. We will monitor medications and make changes as indicated. Likely length of stay is 2-4 days. Coding Level of Care Code Acute Code for [facility] Fwd Diagnoses Depression F32.A Borderline personality disorder F60.3 Cannabis abuse F12.10 Major depressive disorder, severe F32.2 Mild intellectual disability F70 Autistic disorder F84.0
[2024-08-16 14:00] VITALS: BP 104/58; PULSE 82; RESP 18; TEMP 36.8; O2SAT 97
[2024-08-16] MEDS: haloperidol 5 mg Tablet PO ×2 (15:57→20:07)
[2024-08-16] MEDS: trazodone 50 mg Tablet PO (20:07)
[2024-08-16 20:30] VITALS: BP 119/67; PULSE 120; RESP 19; TEMP 36.6; O2SAT 95
[2024-08-17 06:00] VITALS: BP 98/61; PULSE 92; RESP 17; TEMP 36.6; O2SAT 94
[2024-08-17] MEDS: haloperidol 5 mg Tablet PO (10:45)
[2024-08-17] MEDS: cephALEXin 500 mg Capsule PO ×3 (11:19→21:06)
[2024-08-17] MEDS: nicotine 4 mg lozenge MUCOUS MEM ×3 (11:52→17:51)
[2024-08-17 14:00] VITALS: BP 120/74; PULSE 110; RESP 17; TEMP 36.9; O2SAT 94
[2024-08-17] MEDS: buPROPion XL (24 HR) 150 mg Tablet PO (15:27)
[2024-08-17] MEDS: paliperidone ER 3 mg Tablet PO (15:27)
[2024-08-17] MEDS: paliperidone ER 9 mg Tablet PO (15:27)
[2024-08-17] MEDS: buPROPion XL (24 HR) 300 mg Tablet PO (15:27)
[2024-08-17] MEDS: hyDROXYzine 25 mg Capsule 50 MG PO (15:46)
--- NOTE | 2024-08-17 16:52 | P.NPUPN_ITS ---
Subjective NPU 2 Subjective: Patient presented today reporting that things are going better. However staff report continued episodes of poor impulse control leading to as needed medication. She continues to have moments of poor self-control. She identified a desire to go home and was very frustrated at the idea of not going home. We had a long discussion about the fact that her discharge is predicated on her behavior and if she wants to discharge sometime in the next couple days she is going to demonstrate the ability to manage her impulses. We discussed the risks, benefits and alternatives of increasing her Wellbutrin and Invega and she understood and agreed to proceed as is documented in this note. Mental Status Exam 2 MSE Comments: This is a short, morbidly obese white adolescent woman with hosptial scrubs on with poor grooming and limited eye contact. No abnormal movements except for mild psychomotor retardation. Cooperative with exam in mild to moderate distress with increased emotionality surrounding her desire to discharge. Speech was normal rate and volume with some difficulty with hours. Mood described as okay but I was feeling suicidal, affect is slightly subdued. Thought process, organized. Thought content: patient endorsed suicidal ideation and denies homicidal ideation, no delusions reported or noted and denies auditory or visual hallucinations. Attention and concentration are intact and memory appeared somewhat reliable but none were formally tested. She is alert and oriented x 3. Insight, judgment and impulse control are all limited versus impaired. Intellectual ability is consistent with mild intellectual disability versus borderline intellectual functioning. Vitals/I&O/Wt Last Vital Signs Temp 97.9 F 08/17/24 06:00 Pulse 92 08/17/24 06:00 Resp 17 08/17/24 06:00 BP 98/61 08/17/24 06:00 Pulse Ox 94 08/17/24 06:00 O2 Del Method Room Air 08/17/24 06:00 Weight last 48 hrs Weight 120.769 kg Data NPU 08/13/24 15:37 08/13/24 15:37 A&P Assessment and plan (1) Depression: (2) Borderline personality disorder: (3) Cannabis abuse: (4) Major depressive disorder, severe: (5) Mild intellectual disability: (6) Autistic disorder: Plan This is a 18-year-old female with a history of intellectual disability depression, anxiety and frequent self-injurious behavior/reports of suicidal ideation with frequent hospitalizations secondary to her poor impulse control, cluster B pathology and limited coping skills presents with limited symptoms other than reporting that she was feeling unsafe and having suicidal thoughts and that it was recommended that she come to the hospital. 1. Continue current medication. We will evaluate whether there is any clear indication to make any changes which will determine whether this is a quick admission and discharge. Or not. Increase Wellbutrin XL to 450 mg p.o. every morning and Invega to 12 mg p.o. nightly. 2. Continue to advise patient to work with the outpatient team at increased CBT and DBT treatment given the lack of credible lethality and the likelihood for this being self-injurious behavior against the backdrop of cluster B pathology. 3. Continue every 15 minute checks for safety. 4. Encourage individual, group and milieu therapy. 5. Obtain collateral information. 6. Identify whether this represents a decompensation or is the intermittent explosive poor impulse control that can be seen with individuals with intellectual disability. PDMP PDMP Reviewed: Not Reviewed Involuntary Hold Information 2 Hold Status: Legal Status: 96 Hour Hold Date/Time Hold Expires: 08/19/26 @ 15:27 96 Hour Hold: 96 Hour Involuntary Admission: Yes Other Hold: Hold End Date: 03/26/24 Attestations NPU 2 Medical Necessity Statement*: Inpatient hospitalization is medically necessary and the clinically appropriate intervention at this time. We will monitor medications and make changes as indicated. Likely length of stay is days. Coding Level of Care Code Acute Code for [facility] Fwd Diagnoses Depression F32.A Borderline personality disorder F60.3 Cannabis abuse F12.10 Major depressive disorder, severe F32.2 Mild intellectual disability F70 Autistic disorder F84.0
[2024-08-17] MEDS: LORazepam 1 MG/0.5 ML injection 2 MG IM (19:36)
[2024-08-17] MEDS: haloperidol inj 5 mg/mL INJ 1 mL IM (19:36)
[2024-08-17] MEDS: diphenhydrAMINE 50 mg/mL SDV 1mL IM (19:36)
--- NOTE | 2024-08-17 20:16 | PC.NURSE ---
Code 10 This RN was called to NPU by [employer] due to escalating pt. Code 10 called overhead a short time after. When arriving to unit, pt was on the south side TV room in a SAFE Hold by security x 2. Pt was yelling at staff to let her leave, and kicking the wall, pushing on the door and punching the glass. Restraint bed was brought to pt in dayroom, and pt was placed in bed by staff x8. Pt was taken to restraint room, and IM medications were administered. Physician notified. Pt RN 1:1, pt became calm and cooperative, 1 extremity at a time released. Pt escorted to her bed, refreshments provided. Physician at bedside for [id number]. No injuries to staff reported, no injuries to pt reported.
[2024-08-17 20:17] VITALS: BP 110/67; PULSE 104; RESP 20; TEMP 37.3; O2SAT 95
[2024-08-17 20:23] VITALS: BP 133/96; PULSE 104; RESP 18; TEMP 37.1; O2SAT 97
[2024-08-17] MEDS: trazodone 50 mg Tablet PO (21:06)
[2024-08-18 06:00] VITALS: BP 119/69; PULSE 97; RESP 18; O2SAT 96
--- NOTE | 2024-08-18 10:01 | PC.NURSE ---
Signee went down to pt.'s room twice thus far this am and let pt. know signanastasia had her medications ready would she please come up to the desk and take them and pt. is still laying in the bed refusing to come up to the nurses station.
[2024-08-18] MEDS: cephALEXin 500 mg Capsule PO ×3 (10:04→20:03)
[2024-08-18] MEDS: buPROPion XL (24 HR) 150 mg Tablet PO ×2 (10:04→10:05)
[2024-08-18] MEDS: paliperidone ER 9 mg Tablet PO (10:04)
[2024-08-18] MEDS: paliperidone ER 3 mg Tablet PO (10:04)
[2024-08-18] MEDS: hyDROXYzine 25 mg Capsule 50 MG PO ×2 (10:05→16:36)
[2024-08-18] MEDS: buPROPion XL (24 HR) 300 mg Tablet PO (10:31)
[2024-08-18] MEDS: nicotine 4 mg lozenge MUCOUS MEM ×4 (10:55→20:20)
[2024-08-18 14:00] VITALS: BP 124/75; PULSE 120; RESP 18; TEMP 36.9; O2SAT 96
--- NOTE | 2024-08-18 14:46 | P.NPUPN_ITS ---
Subjective NPU 2 Subjective: Patient presented today reporting that she is doing much better. She endorsed feeling optimistic about being able to discharge and was clear she plan to have no more problems while in the hospital. She endorses that her increase in Wellbutrin and Invega were helpful and she denied any side effects to the medication. We discussed the likelihood of discharge tomorrow. Mental Status Exam 2 MSE Comments: This is a short, morbidly obese white adolescent woman with hosptial scrubs on with poor grooming and limited eye contact. No abnormal movements except for mild psychomotor retardation. Cooperative with exam in distress with increased emotionality surrounding her desire to discharge. Speech was normal rate and volume with some difficulty with hours. Mood described as better , affect is slightly subdued. Thought process, organized. Thought content: patient denied suicidal or homicidal ideation, no delusions reported or noted and denies auditory or visual hallucinations. Attention and concentration are intact and memory appeared somewhat reliable but none were formally tested. She is alert and oriented x 3. Insight, judgment and impulse control are all l improving. Intellectual ability is consistent with mild intellectual disability versus borderline intellectual functioning. Vitals/I&O/Wt Last Vital Signs Temp 98.5 F 08/18/24 14:00 Pulse 120H 08/18/24 14:00 Resp 18 08/18/24 14:00 BP 124/75 08/18/24 14:00 Pulse Ox 96 08/18/24 14:00 O2 Del Method Room Air 08/18/24 14:00 Data NPU 08/13/24 15:37 08/13/24 15:37 A&P Assessment and plan (1) Depression: (2) Borderline personality disorder: (3) Cannabis abuse: (4) Major depressive disorder, severe: (5) Mild intellectual disability: (6) Autistic disorder: Plan This is a 18-year-old female with a history of intellectual disability depression, anxiety and frequent self-injurious behavior/reports of suicidal ideation with frequent hospitalizations secondary to her poor impulse control, cluster B pathology and limited coping skills presents with limited symptoms other than reporting that she was feeling unsafe and having suicidal thoughts and that it was recommended that she come to the hospital. 1. Continue current medication. We will evaluate whether there is any clear indication to make any changes which will determine whether this is a quick admission and discharge. Or not. Increase Wellbutrin XL to 450 mg p.o. every morning and Invega to 12 mg p.o. nightly. 2. Continue to advise patient to work with the outpatient team at increased CBT and DBT treatment given the lack of credible lethality and the likelihood for this being self-injurious behavior against the backdrop of cluster B pathology. 3. Continue every 15 minute checks for safety. 4. Encourage individual, group and milieu therapy. 5. Obtain collateral information. 6. Identify whether this represents a decompensation or is the intermittent explosive poor impulse control that can be seen with individuals with intellectual disability. PDMP PDMP Reviewed: Not Reviewed Involuntary Hold Information 2 Hold Status: Legal Status: 96 Hour Hold Date/Time Hold Expires: 08/19/26 @ 15:27 96 Hour Hold: 96 Hour Involuntary Admission: Yes Other Hold: Hold End Date: 03/26/24 Attestations NPU 2 Medical Necessity Statement*: Inpatient hospitalization is medically necessary and the clinically appropriate intervention at this time. We will monitor medications and make changes as indicated. Likely length of stay is 1 day. Coding Level of Care Code Acute Code for [facility] Fwd Diagnoses Depression F32.A Borderline personality disorder F60.3 Cannabis abuse F12.10 Major depressive disorder, severe F32.2 Mild intellectual disability F70 Autistic disorder F84.0
[2024-08-18] MEDS: acetaminophen 325 mg Tablet 650 MG PO (19:00)
[2024-08-18 19:42] VITALS: BP 130/79; PULSE 139; RESP 18; TEMP 37.3; O2SAT 95
[2024-08-18] MEDS: haloperidol 5 mg Tablet PO (20:03)
[2024-08-18] MEDS: trazodone 50 mg Tablet PO (20:03)
[2024-08-19 06:00] VITALS: BP 104/61; PULSE 103; RESP 18; TEMP 36.7; O2SAT 95
[2024-08-19] MEDS: OLANZapine 5 mg ODT PO (07:44)
[2024-08-19] MEDS: nicotine 4 mg lozenge MUCOUS MEM ×2 (07:52→11:28)
[2024-08-19] MEDS: paliperidone ER 3 mg Tablet PO (08:46)
[2024-08-19] MEDS: buPROPion XL (24 HR) 150 mg Tablet PO (08:46)
[2024-08-19] MEDS: paliperidone ER 9 mg Tablet PO (08:46)
[2024-08-19] MEDS: cephALEXin 500 mg Capsule PO ×2 (08:47→14:39)
[2024-08-19] MEDS: buPROPion XL (24 HR) 300 mg Tablet PO (08:53)
[2024-08-19] MEDS: acetaminophen 325 mg Tablet 650 MG PO (11:28)
[2024-08-19] MEDS: ibuprofen 600 mg Tablet PO (13:14)
[2024-08-19] MEDS: hyDROXYzine 25 mg Capsule 50 MG PO ×2 (13:28→13:29)
[2024-08-19 15:10] VITALS: BP 104/61; PULSE 103; RESP 18; TEMP 36.7; O2SAT 95
== END 2024-08-19 15:18 | disposition home or self-care (01) | DRG 885 ==
LOC: ER 15:45 → NP 16:10
PROVIDERS: Admitting Provider Psychiatry & Neurology Psychiatry; Emergency Provider Emergency Medicine; PCP Family Medicine; Visit Provider Psychiatry & Neurology Psychiatry
DX: F33.2 Major depressive disorder, recurrent severe without psychotic features (principal); Z68.43 Body mass index [BMI] 50.0-59.9, adult; R45.851 Suicidal ideations; E66.01 Morbid (severe) obesity due to excess calories; F70 Mild intellectual disabilities; F60.3 Borderline personality disorder; F12.10 Cannabis abuse, uncomplicated; F84.0 Autistic disorder; E03.9 Hypothyroidism, unspecified; F17.290 Nicotine dependence, other tobacco product, uncomplicated
CPT/HCPCS: 36415; 73130; 80053; 80306; 80307; 81001; 81025; 84443; 85025; 93005; 96372; 97150; 97165; 99285; J1200; J1630; J2060; J9999

== ENCOUNTER 2024-10-29 14:04 | Emergency (ER) | payer MEDICAID, SELFPAY ==
[2022-09-05 08:49] VITALS: BP 129/79; BMI 36.6
[2024-10-29 14:06] VITALS: BP 135/92; PULSE 108; RESP 16; TEMP 37.2; O2SAT 98; BMI 53.6
--- NOTE | 2024-10-29 14:09 | W.ED.PSYCHS ---
HPI - Psych General: Chief Complaint: Psychiatric Symptoms Stated Complaint: SI Time Seen by Provider: 10/29/24 14:05 History of Present Illness: 19-year-old female with a history of tobacco use, obesity and depression who presents to the emergency room with suicidal thoughts. She said this been going on for couple of years. Last admission was about 2 months ago. She has a plan of cutting herself. She has not cut herself thus far. Related Data Home Medications ?Medication ?Instructions ?Recorded ?Confirmed cholecalciferol (vitamin D3) 50 50 mcg PO DAILY 06/05/22 10/29/24 mcg (2,000 unit) capsule (Vitamin D3) methylphenidate HCl 54 mg 54 mg PO DAILY 03/20/24 10/29/24 tablet,extended release 24 hr (Concerta) desogestrel 0.15 mg-ethinyl 0.15 tab PO DAILY 03/23/24 10/29/24 estradiol 0.03 mg tablet (Apri) diphenoxylate-atropine 2.5 2 tab PO .Q6-8H PRN Diarrhea 08/13/24 10/29/24 mg-0.025 mg tablet levothyroxine 150 mcg tablet 150 mcg PO DAILY 08/13/24 10/29/24 Previous Rx's ?Medication ?Instructions ?Recorded bupropion HCl 150 mg 24 hr tablet, 150 mg PO DAILY 30 days #30 tabs 10/20/24 extended release bupropion HCl 300 mg 24 hr tablet, 300 mg PO QAM #30 tabs 10/20/24 extended release (Wellbutrin XL) paliperidone 6 mg tablet,extended 12 mg (2 x 6 mg) PO DAILY 30 days 10/20/24 release 24 hr (Invega) #60 tabs trazodone 50 mg tablet 50 mg PO BEDTIME #30 tabs 10/20/24 cephalexin 500 mg tablet 500 mg PO TID 7 days #21 tabs 10/29/24 citalopram 10 mg tablet (Celexa) 10 mg PO DAILY #30 tabs 10/29/24 citalopram 20 mg tablet 20 mg PO DAILY 30 days #30 tabs 10/29/24 Allergies Allergy/AdvReac Type Severity Reaction Status Date / Time No Known Allergies Allergy Verified 10/29/24 12:58 Review of Systems Narrative: Constitutional symptoms: Negative except as documented in HPI. Skin symptoms: Negative except as documented in HPI. Eye symptoms: Negative except as documented in HPI. ENMT symptoms: Negative except as documented in HPI. Respiratory symptoms: Negative except as documented in HPI. Cardiovascular symptoms: Negative except as documented in HPI. Gastrointestinal symptoms: Negative except as documented in HPI. Genitourinary symptoms: Negative except as documented in HPI. Musculoskeletal symptoms: Negative except as documented in HPI. Neurologic symptoms: Negative except as documented in HPI. Psychiatric symptoms: Negative except as documented in HPI. Endocrine symptoms: Negative except as documented in HPI. PFSH ED PFSH: Medical History (Updated 10/29/24 @ 15:32 by Emiliana Timmons MD) Tobacco use disorder On combination antipsychotic drug therapy Borderline personality disorder Cannabis abuse Major depressive disorder, recurrent, moderate Depression Psychiatric care Family History Family/Other Cancer lung Dementia Grandmother COPD (chronic obstructive pulmonary disease) Social History Smoking and tobacco/nicotine status: current every day tobacco/nicotine user e-cigarettes E-Cigarette Details: vaporizer device E-cig/vape details: 1 cartridge per week with nicotine Quit status (tobacco/nicotine): not considering quitting Second hand smoke exposure: Yes (everyone) Alcohol intake: never Substance/Drug Use: current Substance/Drug use frequency: few times a week Other substance/drug use details: when client has the money to purchase Adopted: No Caregiver/support person: No Lives independently: No Household members: family and other Details: Mother, sister, brother, and toddler or younger nieces and nephews Housing: House Marital status: Single Highest education level completed: 11th Grade Education level details: in 12th grade service: No Current occupational status: student Current occupational exposures/hazards: No Pets and animals: Yes Pets & animals: dog(s) Leisure activites: other Leisure activities details: walk, listen to music Sexually active: No Do you think of yourself as: Straight/Heterosexual Current gender identity: Female Rut/Gnosticist: None Agree to transfusion: Yes Female Reproductive History: Para: 0 Spontaneous abortions: No Physical Exam Narrative: EXAM NARRATIVE: General: Alert, no acute distress. Skin: Warm, dry. Head: Normocephalic, atraumatic. Neck: Supple, trachea midline. Eye: Extraocular movements are intact. Ears, nose, mouth and throat: mucosa moist. Cardiovascular: Regular, Normal peripheral perfusion. Respiratory: Lungs are clear to auscultation, respirations are non-labored, breath sounds are equal, Symmetrical chest wall expansion. Gastrointestinal: Soft, Nontender, Non distended Musculoskeletal: Normal ROM, no deformity. Neurological: Alert and oriented, No focal neurological deficit observed. Psychiatric: Cooperative, patient endorses suicidal thoughts Course Vital Signs: Vital signs: Vital Signs Temperature 98.9 F 10/29/24 14:06 Pulse Rate 108 H 10/29/24 14:06 Respiratory Rate 16 10/29/24 14:06 Blood Pressure 135/92 10/29/24 14:06 Pulse Oximetry 98 10/29/24 14:06 Oxygen Delivery Me thod Room Air 10/29/24 14:06 MDM - Psych Medical Decision Making Differential diagnosis: Patient with reported depression and suicidal ideation. concerns for infection, alcohol intoxication, cardiac issues or other medical problems prior to psychiatric admission. Workup: labwork, ekg ordered to evaluate the pathologies and to clear the patient medically prior to psychiatric admission Chest x-ray: No acute process. No infiltrate. No pneumothorax. Films were interpreted by myself the emergency room provider and pending final radiology review. EKG: Time 1431. Rate 89. Normal sinus rhythm, no ST changes, no ectopy, normal TN & QRS intervals, This was reviewed and interpreted by myself the ER physician at 1435. Lab Review: Laboratory results were reviewed and interpreted by myself the emergency room physician. - Medically cleared. - EKG shows no ischemic changes. - Blood alcohol level is negative, -Tylenol and salicylate levels are negative. - Drug screen is positive for marijuana - Patient does have evidence of urinary tract infection - No anemia. - BUN and creatinine are within normal limits. Consultation: I spoke with Dr. Reddy who is on-call for psychiatry. 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 Assessment and plan: Suicidal ideation Depression Urinary tract infection ?IM Ativan for anxiety. P.o. Keflex for urinary tract infection -Admission to neuropsychiatric unit for continued evaluation and treatment. - All lab work was reviewed and interpreted personally by myself, the ER physician - Evaluation and treatment of this problem were appropriate in the emergency setting Lab Data 10/29/24 14:34 10/29/24 14:34 Laboratory Results WBC 16.27 10^3/uL (3.29-11.43) H 10/29/24 14:34 RBC 4.59 10^6/uL (3.85-5.65) 10/29/24 14:34 Hgb 12.30 g/dL (11.27-16.99) 10/29/24 14:34 Hct 37.9 % (36-47) 10/29/24 14:34 MCV 82.6 fl (85-98) L 10/29/24 14:34 MCH 26.8 pg (27-33) L 10/29/24 14:34 MCHC 32.5 g/dL (30-55) 10/29/24 14:34 RDW 13.8 % (12.1-15.1) 10/29/24 14:34 Plt Count 340 10^3/cmm (157-399) 10/29/24 14:34 MPV 9.3 fL (7.4-10.4) 10/29/24 14:34 Neut % (Auto) 72.8 % 10/29/24 14:34 Lymph % (Auto) 20.3 % 10/29/24 14:34 [place] % (Auto) 5.4 % 10/29/24 14:34 Eos % (Auto) 0.8 % 10/29/24 14:34 Baso % (Auto) 0.3 % 10/29/24 14:34 Neut # (Auto) 11.84 10^3/uL (1.8-7.7) H 10/29/24 14:34 Lymph # (Auto) 3.3 10^3/uL (0.8-4.8) 10/29/24 14:34 [place] # (Auto) 0.9 10^3/uL (0.2-0.9) 10/29/24 14:34 Eos # (Auto) 0.1 10^3/uL (0.0-0.8) 10/29/24 14:34 Baso # (Auto) 0.1 10^3/uL (0.0-0.1) 10/29/24 14:34 Nucleated RBC % (auto) 0 % 10/29/24 14:34 Nucleated RBCs # 0.0 /100WBC 10/29/24 14:34 Sodium 134 mmol/L (136-145) L 10/29/24 14:34 Potassium 3.5 mmol/L (3.5-5.1) 10/29/24 14:34 Chloride 99 mmol/L (98-107) 10/29/24 14:34 Carbon Dioxide 20 mmol/L (22-29) L 10/29/24 14:34 Anion Gap 18.5 (5-19) 10/29/24 14:34 BUN 8 mg/dL (6-20) 10/29/24 14:34 Creatinine 0.8 mg/dL (0.5-0.9) 10/29/24 14:34 GFR Calculation 90.5 mL/min (90-130) 10/29/24 14:34 Glucose 81 mg/dL (65-115) 10/29/24 14:34 Calculated Osmolality 275 mOsm/kg (285-295) L 10/29/24 14:34 Calcium 9.1 mg/dL (8.5-10.5) 10/29/24 14:34 Total Bilirubin 0.2 mg/dL (0.15-1.2) 10/29/24 14:34 AST 16 U/L (0-32) 10/29/24 14:34 ALT 17 U/L (0-33) 10/29/24 14:34 Alkaline Phosphatase 82 U/L (35-105) 10/29/24 14:34 Total Protein 7.7 g/dL (6.6-8.7) 10/29/24 14:34 Albumin 3.8 g/dL (3.5-5.2) 10/29/24 14:34 Globulin 3.9 g/dL (1.3-4.6) 10/29/24 14:34 TSH 0.66 uIU/mL (0.27-4.20) 10/29/24 14:34 HCG, Qual Negative (Negative) 10/29/24 14:18 Urine Color Yellow (Yellow) 10/29/24 14:18 Urine Appearance Cloudy (CLEAR) A 10/29/24 14:18 Urine pH 6.0 (5-7) 10/29/24 14:18 Ur Specific [place] 1.023 (1.005-1.030) 10/29/24 14:18 Urine Protein Trace (Negative) A 10/29/24 14:18 Urine Glucose (UA) Negative (Normal) 10/29/24 14:18 Urine Ketones 1+ (Negative) H 10/29/24 14:18 Urine Blood 3+ (Negative) A 10/29/24 14:18 Urine Nitrate Negative (Negative) 10/29/24 14:18 Urine Bilirubin Negative (Negative) 10/29/24 14:18 Urine Urobilinogen 1.0 mg/dL (Negative) 10/29/24 14:18 Ur Leukocyte Esterase 1+ (Negative) A 10/29/24 14:18 Urine RBC 51-100 /hpf (0-2) H 10/29/24 14:18 Urine WBC 21-50 /hpf (0-5) H 10/29/24 14:18 Ur Squamous Epith Cells 11-20 /hpf (0-5) H 10/29/24 14:18 Amorphous Sediment Not Reportable 10/29/24 14:18 Urine Bacteria 4+ /hpf (NONE) H 10/29/24 14:18 Hyaline Casts 4.11 /lpf 10/29/24 14:18 Salicylates < 0.3 mg/dL (3-10) L 10/29/24 14:34 Urine Opiates Screen Negative ng/mL (Negative) 10/29/24 14:18 Acetaminophen < 5.0 ug/mL (10-30) L 10/29/24 14:34 Ur Barbiturates Screen Negative ng/mL (Negative) 10/29/24 14:18 Ur Phencyclidine Scrn Negative ng/mL (Negative) 10/29/24 14:18 Ur Amphetamines Screen Negative ng/mL (Negative) 10/29/24 14:18 U Benzodiazepines Scrn Negative ng/mL (Negative) 10/29/24 14:18 Urine Cocaine Screen Negative ng/mL (Negative) 10/29/24 14:18 U Marijuana (THC) Screen Positive ng/mL (Negative) H 10/29/24 14:18 Ethyl Alcohol < 10 mg/dL (0-10) 10/29/24 14:34 Influenza A (PCR) Negative (Negative) 10/29/24 16:19 Influenza Type B (PCR) Negative (Negative) 10/29/24 16:19 RSV (PCR) Negative (Negative) 10/29/24 16:19 SARS-CoV-2 (PCR) Negative (Negative) 10/29/24 16:19 XR interpretation done by ED provider, pending radiology final review Discharge Plan Discharge Patient Disposition: Xfer Psychiatric Hosp Clinical Impression: Depression, Suicidal ideation Condition: Stable Referrals: Felipe Garcia MD [Primary Care Provider, [facility]] Patient Instructions: Pain Management, Patient Portal & [facility]lin Instructions Print Language: Vincentian Coding Level of Care Code ED Institute Director for [facility]
[2024-10-29 14:30] LABS: Glucose Urine UA Negative (Normal); Nitrate Urine Negative (Negative); Specific Gravity, Urine 1.023 (1.005-1.030)
--- NOTE | 2024-10-29 14:31 | ECG_ITS ---
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 Measurements Intervals [place] Rate: 89 P: 13 WY: 135 QRS: 29 QRSD: 88 T: 12 QT: 351 QTc: 427 Interpretive Statements SINUS RHYTHM WITH SINUS ARRHYTHMIA LOW QRS VOLTAGE IN PRECORDIAL LEADS [QRS DEFLECTION < 1.0 mV IN CHEST LEADS] POSSIBLE ANTERIOR MYOCARDIAL INFARCTION , PROBABLY OLD [30 ms Q WAVE IN V3/V4, OR R < 0.2 mV IN V4] Compared to ECG 08/13/2024 16:04:38 Myocardial infarct finding now present Sinus tachycardia no longer present Electronically Signed On 10-30-2024 22:41:59 CDT by Vicente Capellan M.D. [email or web address]
[2024-10-29 14:36] LABS: Add Urine Microscopic? YES
[2024-10-29 14:38] LABS: PCP Screen Urine Negative (Negative)
[2024-10-29 14:43] LABS: Hematocrit 37.9 % (36-47); Hemoglobin 12.30 g/dL (11.27-16.99); Mean Corpuscular HGB Conc 32.5 g/dL (30-55); Mean Corpuscular Hemoglobin 26.8 pg (27-33); Mean Corpuscular Volume 82.6 fl (85-98); Nucleated Red Blood Cells % 0 %; Platelet Count 340 10^3/cmm (157-399); Red Blood Count 4.59 10^6/uL (3.85-5.65); White Blood Count 16.27 10^3/uL (3.29-11.43)
--- NOTE | 2024-10-29 14:57 | PC.NURSE ---
Involuntary 96 hour hold rights read and reviewed with patient. Ronny from security present during reading of rights. Copy of rights given to patient.
[2024-10-29 15:12] LABS: UA Slide Review UA Slide Review Perf
[2024-10-29 15:13] LABS: Alanine Aminotransferase 17 U/L (0-33); Albumin Level 3.8 g/dL (3.5-5.2); Alkaline Phosphatase 82 U/L (35-105); Anion Gap 18.5 (5-19); Aspartate Amino Transferase 16 U/L (0-32); Blood Urea Nitrogen 8 mg/dL (6-20); Calcium 9.1 mg/dL (8.5-10.5); Carbon Dioxide 20 mmol/L (22-29); Chloride 99 mmol/L (98-107); Creatinine Clr Calc Pharmacy 135.5607; Globulin 3.9 g/dL (1.3-4.6); Glucose 81 mg/dL (65-115); Osmolality Calculated 275 mOsm/kg (285-295); Potassium 3.5 mmol/L (3.5-5.1); Sodium 134 mmol/L (136-145); Thyroid Stimulating Hormone 0.66 uIU/mL (0.27-4.20); Total Protein 7.7 g/dL (6.6-8.7)
[2024-10-29 15:14] LABS: Acetaminophen < 5.0 ug/mL (10-30); Alcohol Level < 10 mg/dL (0-10); Salicylate < 0.3 mg/dL (3-10)
--- NOTE | 2024-10-29 15:52 | XRR_ITS ---
PROCEDURE INFORMATION: Exam: XR Chest Exam date and time: 10/29/2024 3:53 PM Age: 19 years old Clinical indication: Screening exam; Other screening; Medical clearance for psych transfer; Additional info: Psychiatric work up TECHNIQUE: Imaging protocol: Radiologic exam of the chest. Views: 1 view. COMPARISON: CR XR chest 1V portable [id number] 01/15/2022 11:02 PM FINDINGS: Lungs: Low lung volumes. Minimal streaky bibasilar atelectasis. No consolidation. Pleural spaces: Unremarkable. No pleural effusion. No pneumothorax. Heart/Mediastinum: Stable cardiomediastinal silhouette. Bones/joints: Unremarkable. XR/XR chest 1V portable [id number] IMPRESSION: No acute findings.
[2024-10-29] MEDS: LORazepam 1 MG/0.5 ML injection 2 MG IM (16:05)
[2024-10-29 17:07] LABS: Respiratory Syncytial Virus Ce NEGATIVE (Negative); SARS-CoV-2 PCR NEGATIVE (Negative)
[2024-10-29 17:46] LABS: HCG Qualitative Urine. Negative (Negative)
[2024-10-29 18:14] VITALS: BP 159/95; PULSE 99; RESP 16; O2SAT 98
[2024-10-29 18:25] VITALS: BP 159/95; PULSE 99; RESP 16; O2SAT 94
== END 2024-10-29 19:38 ==
PROVIDERS: Emergency Provider Emergency Medicine; PCP Family Medicine
DX: R45.851 Suicidal ideations (principal); F32.A Depression, unspecified; Z11.52 Encounter for screening for COVID-19; F17.290 Nicotine dependence, other tobacco product, uncomplicated
CPT/HCPCS: 36415; 71045; 80053; 80306; 80307; 81001; 81025; 84443; 85025; 87637; 93005; 96372; 99285; J2060; J9999

== ENCOUNTER 2024-12-21 11:10 | Emergency (ER) | payer MEDICAID, SELFPAY ==
[2022-09-05 08:49] VITALS: BP 129/79; BMI 36.6
[2024-12-21 11:16] VITALS: BP 126/75; PULSE 105; RESP 20; TEMP 36.8; O2SAT 100; BMI 53.8
[2024-12-21 12:06] VITALS: BP 126/74; PULSE 72; O2SAT 100
--- NOTE | 2024-12-21 12:16 | W.ED.WOUNDLC ---
HPI - Wound/Laceration General: Chief Complaint: Wound/Laceration Stated Complaint: R thumb cut Time Seen by Provider: 12/21/24 11:26 Source: patient Mode of arrival: ambulatory Limitations: no limitations History of Present Illness: Patient is a 19-year-old female present to the emergency department for small laceration to tip of right thumb. States that this occurred several days ago she was using a steak knife, but states it has not healed all the way and she is concerned of it being infected. Has been cleaning it, no fevers or systemic symptoms reported. No distal sensory changes. Tetanus up-to-date. Onset (ago): day(s) Extremity Location: Right: hand (thumb) Patient tetanus UTD: Yes Context: accidental Associated symptoms: Denies chills, fever(s), nausea or vomiting Related Data Home Medications ?Medication ?Instructions ?Recorded ?Confirmed cholecalciferol (vitamin D3) 50 50 mcg PO DAILY 06/05/22 10/29/24 mcg (2,000 unit) capsule (Vitamin D3) methylphenidate HCl 54 mg 54 mg PO DAILY 03/20/24 10/29/24 tablet,extended release 24 hr (Concerta) desogestrel 0.15 mg-ethinyl 0.15 tab PO DAILY 03/23/24 10/29/24 estradiol 0.03 mg tablet (Apri) diphenoxylate-atropine 2.5 2 tab PO .Q6-8H PRN Diarrhea 08/13/24 10/29/24 mg-0.025 mg tablet levothyroxine 125 mcg capsule 125 mcg PO DAILY 11/24/24 11/24/24 levothyroxine 150 mcg tablet 150 mcg PO DAILY 11/24/24 11/24/24 Previous Rx's ?Medication ?Instructions ?Recorded bupropion HCl 300 mg 24 hr tablet, 300 mg PO QAM #30 tabs 10/20/24 extended release (Wellbutrin XL) trazodone 50 mg tablet 50 mg PO BEDTIME #30 tabs 10/20/24 citalopram 10 mg tablet (Celexa) 10 mg PO DAILY #30 tabs 10/29/24 citalopram 20 mg tablet 20 mg PO DAILY 30 days #30 tabs 10/29/24 escitalopram oxalate 20 mg tablet 20 mg PO DAILY #30 tabs 10/02/25 lithium carbonate 300 mg tablet See Rx Instructions .Route 12/07/24 .COMPLEX #60 tabs bupropion HCl 150 mg 24 hr tablet, 150 mg PO DAILY 30 days #30 tabs 12/16/24 extended release paliperidone 6 mg tablet,extended 12 mg (2 x 6 mg) PO DAILY 30 days 12/16/24 release 24 hr (Invega) #60 tabs mupirocin 2 % topical ointment 1 applic topical BID #15 grams 12/21/24 Allergies Allergy/AdvReac Type Severity Reaction Status Date / Time No Known Allergies Allergy Verified 11/24/24 12:51 Review of Systems General: Reports: 10 or more systems reviewed and unremarkable except in HPI and below Const: Denies: fever(s) or chills Card: Denies: chest pain Resp: Denies: dyspnea GI: Denies: abdominal pain, nausea, vomiting or diarrhea Musc: Denies: extremity pain or joint pain Skin/Breast: Reports: non-healing lesions (right thumb); Denies: rash, skin pain, skin tenderness or new lesions Neuro: Denies: headache(s) PFSH ED PFSH: Medical History Tobacco use disorder On combination antipsychotic drug therapy Borderline personality disorder Cannabis abuse Major depressive disorder, recurrent, moderate Depression Psychiatric care Family History Family/Other Cancer lung Dementia Grandmother COPD (chronic obstructive pulmonary disease) Social History Smoking and tobacco/nicotine status: current every day tobacco/nicotine user e-cigarettes E-Cigarette Details: vaporizer device E-cig/vape details: 1 cartridge per week with nicotine Quit status (tobacco/nicotine): not considering quitting Second hand smoke exposure: Yes (everyone) Alcohol intake: never Substance/Drug Use: current Substance/Drug use frequency: few times a week Other substance/drug use details: when client has the money to purchase Adopted: No Caregiver/support person: No Lives independently: No Household members: family and other Details: Mother, sister, brother, and toddler or younger nieces and nephews Housing: House Marital status: Single Highest education level completed: 11th Grade Education level details: in 12th grade service: No Current occupational status: student Current occupational exposures/hazards: No Pets and animals: Yes Pets & animals: dog(s) Leisure activites: other Leisure activities details: walk, listen to music Sexually active: No Do you think of yourself as: Straight/Heterosexual Current gender identity: Female Rut/Buddhist: None Agree to transfusion: Yes Female Reproductive History: Para: 0 Spontaneous abortions: No Physical Exam Const: COMMON NORMALS: no acute distress, average body habitus, patient oriented x3, no limitations, healthy appearing, alert and well nourished HENMT: COMMON NORMALS: normocephalic and atraumatic HEAD & SCALP: normocephalic and atraumatic Neck/C-Spine: COMMON NORMALS: full ROM, no lymphadenopathy, supple and no meningeal signs Extremity: COMMON NORMALS: full ROM and capillary refill normal Neuro: COMMON NORMALS: patient oriented x3, moves all extremities, no focal motor deficits and no sensory deficits noted SENSORIUM/ORIENTATION: Yes alert MENINGEAL SIGNS: Yes no meningeal signs Skin: COMMON NORMALS: turgor normal NARRATIVE SKIN EXAM: Very small chronic 1 cm laceration to tip of right thumb, very superficial GENERAL SKIN EXAM: turgor normal Course Vital Signs: Vital signs: Vital Signs Temperature 98.2 F 12/21/24 11:16 Pulse Rate 72 12/21/24 12:06 Respiratory Rate 20 H 12/21/24 11:16 Blood Pressure 126/74 12/21/24 12:06 Pulse Oximetry 100 12/21/24 12:06 Oxygen Delivery Me thod Room Air 12/21/24 11:16 MDM - Wound/Laceration Medical Decision Making This is a superficial laceration requiring no cleaning or procedural closure in the ED, this has been 3 days since this occurred. No signs of infection. Her tetanus was up-to-date. Discussed proper care at home informed her that this will take a few more days to heal. No radiology studies performed this visit Discharge Plan Discharge Patient Disposition: Home Clinical Impression: Laceration of right thumb Condition: Stable Prescriptions: New mupirocin 2 % ointment 1 applic topical BID Qty: 15 0RF No Action citalopram [Celexa] 10 mg tablet 10 mg PO DAILY Qty: 30 2RF Rx Instructions: Take with Celexa 20mg daily to = 30mg total citalopram 20 mg tablet 20 mg PO DAILY 30 Days Qty: 30 2RF Rx Instructions: Take with 10mg to =30mg total levothyroxine 125 mcg capsule 125 mcg PO DAILY Rx Instructions: Sat and Saturday bupropion HCl [Wellbutrin XL] 300 mg tablet extended release 24 hr 300 mg PO QAM Qty: 30 2RF Rx Instructions: Take with 150 mg tablet for 450 mg total. trazodone 50 mg tablet 50 mg PO BEDTIME Qty: 30 2RF escitalopram oxalate 20 mg tablet 20 mg PO DAILY Qty: 30 2RF lithium carbonate 300 mg tablet See Rx Instructions .ROUTE .COMPLEX Qty: 60 1RF Dose Instruction: TAKE 1 TABLET EACH MORNING AND 1 TABLET AT BEDTIME Rx Instructions: TAKE 1 TABLET EACH MORNING AND 1 TABLET AT BEDTIME bupropion HCl 150 mg tablet extended release 24 hr 150 mg PO DAILY 30 Days Qty: 30 1RF Rx Instructions: Take with 300 mg tablet for 450 mg total paliperidone [Invega] 6 mg tablet extended release 24hr 12 mg PO DAILY 30 Days Qty: 60 1RF cholecalciferol (vitamin D3) [Vitamin D3] 50 mcg (2,000 unit) Capsule 50 mcg PO DAILY methylphenidate HCl [Concerta] 54 mg tablet extended release 24hr 54 mg PO DAILY desogestrel-ethinyl estradiol [Apri] 0.15-0.03 mg tablet 0.15 tab PO DAILY diphenoxylate-atropine 2.5-0.025 mg tablet 2 tab PO .Q6-8H PRN (Reason: Diarrhea) levothyroxine 150 mcg tablet 150 mcg PO DAILY Rx Instructions: Saturday thru Saturday Discharge Orders: Discharge ED (Routine); Ordered 12/21/24 Ordered By: Hari Shi Referrals: Felipe Garcia MD [Primary Care Provider, Family Practice] Patient Instructions: Patient Portal & Erlin Instructions Activity Restrictions/Additional Instructions: Thumb Laceration Care Wound Care Instructions: - Keep the wound clean: Gently rinse the thumb laceration with clean tap water once daily. Avoid scrubbing. Do not use hydrogen peroxide or alcohol, as these can delay healing. - Apply mupirocin ointment: After cleaning, apply a thin layer of mupirocin ointment to the wound as prescribed. This helps prevent infection from common skin bacteria. - Cover with a dressing: Place a clean, non-stick, occlusive bandage (such as a bandage strip or gauze with tape) over the wound to keep it moist and protected. Change the dressing daily or if it becomes wet or dirty. A moist environment helps wounds heal faster and reduces pain. - Keep the area dry except for cleaning: You may get the wound wet briefly during cleaning, but otherwise keep it covered and dry. Activity and Follow-Up: - Resume normal activities as tolerated, but avoid activities that may re-injure the thumb until fully healed. - Watch for signs of infection: These include increasing redness, swelling, warmth, pus, or worsening pain. If any of these occur, contact your healthcare provider promptly. - Tetanus protection: If you have not had a tetanus booster in the past 5 years, or if you are unsure, contact your healthcare provider to discuss whether you need a tetanus shot. Additional Information: - Healing time: Most superficial lacerations heal within 7?10 days. - Do not pick at the scab or wound. This can delay healing and increase the risk of infection. - Avoid unnecessary use of topical antibiotics: Mupirocin is provided for this wound, but routine use of antibiotic ointments is not needed for all minor wounds. 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
== END 2024-12-21 12:07 | disposition home or self-care (01) ==
PROVIDERS: Emergency Provider Physician Assistant; PCP Family Medicine
DX: S61.011A Laceration without foreign body of right thumb without damage to nail, initial encounter (principal); F17.290 Nicotine dependence, other tobacco product, uncomplicated; W26.0XXA Contact with knife, initial encounter
CPT/HCPCS: 99283